=== PATIENT | female | born 1950 | race Caucasian/White ===

== ENCOUNTER 2018-11-19 15:10 | Emergency (ER) | payer OTHER ==
--- OUTSIDE RECORDS SUMMARY | 2018-11-19 15:12 | XMS REPORT ---
:1950 [facility] [address] [place] [address] Dr. Mckeon [address] [place] [id number] Care Team Providers Name Role Phone Unavailable Unavailable Unavailable Problems This patient has no known problems. Allergies, Adverse Reactions, Alerts This patient has no known allergies or adverse reactions. Medications This patient has no known medications.
[2018-11-19] MEDS ORDERED: KETOROLAC 30 MG/ML INJ ONE (15:49)
--- NOTE | 2018-11-19 16:21 | ER ---
Nurse's Notes [facility] Name: Celina Lyons Age: 68 yrs Sex: Female : 1950 Arrival Date: 11/19/2018 Time: 15:12 Bed 17 Private MD: Diagnosis: Pain in left knee;Synovial cyst of popliteal space [Ngo], left knee Presentation: 11/19 15:15 Presenting complaint: Patient states: left knee pain, s/p left knee sx with cartilage sv removal on 11/09/18. Reports has had increased activity recently. Transition of care: patient was not received from another setting of care. Onset of symptoms was November 19, 2018. Initial Sepsis Screen: Does the patient meet any 2 criteria? No. Patient's initial sepsis screen is negative. Does the patient have a suspected source of infection? No. Patient's initial sepsis screen is negative. Care prior to arrival: None. 15:15 Method Of Arrival: Wheelchair sv 15:15 Acuity: JOSE 4 sv 15:30 Risk Assessment: Do you want to hurt yourself or someone else? Patient reports no em desire to harm self or others. Historical: - Allergies: 15:22 Codeine; sv - PMHx: 15:22 Diabetes - NIDDM; endometriosis; Thyroid problem; toe amputations; sv - PSHx: 15:22 Partial thyroidectomy to remove benign tumors; gastric band; Cholecystectomy; sv Hysterectomy; partial bladder and bowel removal; Parathyroid removal; Screenin:27 Abuse screen: Denies threats or abuse. Nutritional screening: No deficits noted. em Tuberculosis screening: No symptoms or risk factors identified. Fall Risk None identified. Assessment: 15:30 General: Appears in no apparent distress. comfortable, Behavior is calm, cooperative, em Denies fever. Pain: Complains of pain in left knee Pain currently is 10 out of 10 on a pain scale. Neuro: Level of Consciousness is awake, alert, obeys commands, Oriented to person, place, time, situation. Cardiovascular: Capillary refill < 3 seconds Patient's skin is warm and dry. Respiratory: Airway is patent Respiratory effort is even, unlabored, Respiratory pattern is regular, symmetrical. GI: Patient currently denies nausea, vomiting. Derm: Skin is intact, is healthy with good turgor, Skin is pink, warm \T\ dry. Musculoskeletal: Capillary refill < 3 seconds, Range of motion: intact in all extremities. 15:44 Reassessment: I agree with previous assessment. hb Vital Signs: 15:22 BP 143 / 89; Pulse 84; Resp 20; Temp 97; Pulse Ox 100% ; Weight 77.56 kg; Height 5 ft. sv 2 in. (157.48 cm); Pain 10/10; 15:22 Body Mass Index 31.27 (77.56 kg, 157.48 cm) sv ED Course: 15:12 Patient arrived in ED. as 15:14 Stephany Zazueta FNP-C is PHCP. snw 15:14 Ken Gutierres MD is Attending Physician. snw 15:21 Triage completed. sv 15:21 Partha Campoverde LVN is Primary Nurse. em 15:22 Arm band placed on. sv 15:27 Patient has correct armband on for positive identification. Bed in low position. Call em light in reach. Side rails up X2. 16:23 No provider procedures requiring assistance completed. Patient did not have IV access em during this emergency room visit. 16:25 US Extremity Venous Unilateral Ltd In Process Unspecified. EDMS Administered Medications: 15:44 Drug: TORadol 30 mg Route: IM; Site: right deltoid; em 16:45 Follow up: Response: No adverse reaction; Pain is decreased em Outcome: 16:21 Discharge ordered by MD. snw 16:46 Discharged to home via wheelchair. em 16:46 Condition: stable 16:46 Discharge instructions given to patient, Instructed on discharge instructions, follow up and referral plans. Demonstrated understanding of instructions, follow-up care. 17:05 Patient left the ED. hb Signatures: Dispatcher [employer] EDMS Selina Wise RN RN Stephany Zazueta FNP-C [employer] Partha Campoverde LVN LVN em Irlanda Lott as Constance Cherry RN RN hb Corrections: (The following items were deleted from the chart) 15:27 15:22 Temp 97F; 77.56 kg; Height 5 ft. 2 in.; BMI: 31.2; Pain 10/10; sv sv
--- NOTE | 2018-11-19 16:21 | EDPHYS ---
Physician Documentation [facility] Name: Celina Lyons Age: 68 yrs Sex: Female : 1950 Arrival Date: 11/19/2018 Time: 15:12 Bed 17 Private MD: ED Physician Ken Gutierres HPI: 11/19 16:04 This 68 yrs old Female presents to ER via Wheelchair with complaints of Knee snw Pain. 16:04 Onset: The symptoms/episode began/occurred suddenly. The patient has experienced snw similar episodes in the past. The patient has been recently seen by a physician: Opthalmology yesterday for pre-op. All testing within normal. Pt states her knee has been feeling "too good" and she did too much and now has pain. Declines pain medications except anti-inflammatory. Historical: - Allergies: 15:22 Codeine; sv - PMHx: 15:22 Diabetes - NIDDM; endometriosis; Thyroid problem; toe amputations; sv - PSHx: 15:22 Partial thyroidectomy to remove benign tumors; gastric band; Cholecystectomy; sv Hysterectomy; partial bladder and bowel removal; Parathyroid removal; ROS: 16:02 Constitutional: Negative for fever, chills, and weight loss, Eyes: Negative for injury, snw pain, redness, and discharge, ENT: Negative for injury, pain, and discharge, Neck: Negative for injury, pain, and swelling, Cardiovascular: Negative for chest pain, palpitations, and edema, Respiratory: Negative for shortness of breath, cough, wheezing, and pleuritic chest pain, Abdomen/GI: Negative for abdominal pain, nausea, vomiting, diarrhea, and constipation, Back: Negative for injury and pain, : Negative for injury, bleeding, discharge, and swelling, Skin: Negative for injury, rash, and discoloration, Neuro: Negative for headache, weakness, numbness, tingling, and seizure. 16:02 MS/extremity: Positive for pain, of the left knee. Exam: 16:02 Constitutional: This is a well developed, well nourished patient who is awake, alert, snw and in no acute distress. Head/Face: Normocephalic, atraumatic. Eyes: Pupils equal round and reactive to light, extra-ocular motions intact. Lids and lashes normal. Conjunctiva and sclera are non-icteric and not injected. Cornea within normal limits. Periorbital areas with no swelling, redness, or edema. ENT: Nares patent. No nasal discharge, no septal abnormalities noted. Tympanic membranes are normal and external auditory canals are clear. Oropharynx with no redness, swelling, or masses, exudates, or evidence of obstruction, uvula midline. Mucous membranes moist. Neck: Trachea midline, no thyromegaly or masses palpated, and no cervical lymphadenopathy. Supple, full range of motion without nuchal rigidity, or vertebral point tenderness. No Meningismus. Chest/axilla: Normal chest wall appearance and motion. Nontender with no deformity. No lesions are appreciated. Cardiovascular: Regular rate and rhythm with a normal S1 and S2. No gallops, murmurs, or rubs. Normal PMI, no JVD. No pulse deficits. Respiratory: Lungs have equal breath sounds bilaterally, clear to auscultation and percussion. No rales, rhonchi or wheezes noted. No increased work of breathing, no retractions or nasal flaring. Abdomen/GI: Soft, non-tender, with normal bowel sounds. No distension or tympany. No guarding or rebound. No evidence of tenderness throughout. Back: No spinal tenderness. No costovertebral tenderness. Full range of motion. Skin: Warm, dry with normal turgor. Normal color with no rashes, no lesions, and no evidence of cellulitis. Neuro: Awake and alert, GCS 15, oriented to person, place, time, and situation. Cranial nerves II-XII grossly intact. Motor strength 5/5 in all extremities. Sensory grossly intact. Cerebellar exam normal. Normal gait. Psych: Awake, alert, with orientation to person, place and time. Behavior, mood, and affect are within normal limits. 16:02 Musculoskeletal/extremity: ROM: no acute changes, Pulses: are normal with no appreciated deficits, Sensation intact. Compartment Syndrome exam of affected extremity: is normal. pt states increased pain post over-use s/p arthroscopic surgery. Appt with Ortho next week. . Vital Signs: 15:22 BP 143 / 89; Pulse 84; Resp 20; Temp 97; Pulse Ox 100% ; Weight 77.56 kg; Height 5 ft. sv 2 in. (157.48 cm); Pain 10/10; 15:22 Body Mass Index 31.27 (77.56 kg, 157.48 cm) sv MDM: 15:14 Patient medically screened. snw 16:23 Data reviewed: vital signs, nurses notes. Data interpreted: Pulse oximetry: on room air snw is 100 %. Interpretation: normal. Counseling: I had a detailed discussion with the patient and/or guardian regarding: the historical points, exam findings, and any diagnostic results supporting the discharge/admit diagnosis, radiology results, the need for outpatient follow up, to return to the emergency department if symptoms worsen or persist or if there are any questions or concerns that arise at home. Special discussion: I have referred the patient to see his PCP for further evaluation of high blood pressure. Based on the history and exam findings, there is no indication for further emergent testing or inpatient evaluation. I discussed with the patient/guardian the need to see the orthopedic surgeon for further evaluation of the symptoms. 11/19 15:36 Order name: US Extremity Venous Unilateral Ltd; Complete Time: 16:32 snw 11/19 16:30 Order name: Jeronimo wrap-joint; Complete Time: 16:45 snw Administered Medications: 15:44 Drug: TORadol 30 mg Route: IM; Site: right deltoid; em 16:45 Follow up: Response: No adverse reaction; Pain is decreased em Disposition: 11/19/18 16:21 Discharged to Home. Impression: Pain in left knee, Synovial cyst of popliteal space [Ngo], left knee. - Condition is Stable. - Discharge Instructions: Elastic Bandage and RICE, Ngo Cyst, Musculoskeletal Pain, Cryotherapy, [id number]. - Medication Reconciliation Form, Thank You Letter, Antibiotic Education, Prescription Opioid Use form. - Follow up: Private Physician; When: as scheduled; Reason: Recheck today's complaints, Continuance of care, Re-evaluation by your physician. Follow up: Emergency Department; When: As needed; Reason: Worsening of condition. - Notes: Continue medications as directed. Rest, elevation of left lower extremity. Follow up with Orthopedic Surgeon as scheduled. Addendum: 11/20/2018 22:26 Co-signature as Attending Physician, Ken Gutierres MD. r n Signatures: Dispatcher [employer] Selina Garner RN RN Stephany Lee, ORDER TAKER-C ORDER TAKER-[place] Partha Campoverde, ROLL TENSION TESTER ROLL TENSION TESTER Ken Jeff MD MD rn Constance Cherry RN RN hb Corrections: (The following items were deleted from the chart) 11/19 17:05 16:21 11/19/2018 16:21 Discharged to Home. Impression: Pain in left knee; Synovial cyst hb of popliteal space [Ngo], left knee. Condition is Stable. Forms are Medication Reconciliation Form, Thank You Letter, Antibiotic Education, Prescription Opioid Use. Follow up: Private Physician; When: as scheduled; Reason: Recheck today's complaints, Continuance of care, Re-evaluation by your physician. Follow up: Emergency Department; When: As needed; Reason: Worsening of condition. snw
--- NOTE | 2018-11-19 16:30 | RAD REPORT ---
EXAM DESCRIPTION: US - Extremity Venous Uni Ltd - 11/19/2018 4:25 pm CLINICAL HISTORY: recent scope;Pain Leg swelling and edema. COMPARISON: No comparisons FINDINGS: Left lower extremity venous system was interrogated with Doppler technique. Normal flow, c ompressibility and augmentation was noted. There is no DVT present. IMPRESSION: No evidence of left lower extremity deep venous thrombosis.
[2018-11-19 17:26] VITALS: BP 143/89; TEMP 97; O2SAT 100
== END 2018-11-19 17:05 | disposition home or self-care (01) ==
LOC: ER 15:10
DX: M25.562 Pain in left knee (principal); M71.22 Synovial cyst of popliteal space [Baker], left knee; E11.9 Type 2 diabetes mellitus without complications; Z88.5 Allergy status to narcotic agent
CPT/HCPCS: 93971; 96372; 99283

== ENCOUNTER 2022-11-06 09:02 | Inpatient (IN) | payer OTHER ==
--- OUTSIDE RECORDS SUMMARY | 2022-11-06 09:07 | XMS REPORT | Continuity of Care Document ---
:1950 Author Organization [facility] t Address [address] [facility] [address] [place] [address] Care Team Providers Name Role Phone Leroy Lozada MD Primary Care Physician [phone] Warren Schumacher MD Attending Clinician Doctor Unassigned, [place] Attending Clinician Unavailable Leroy Lozada MD Attending Clinician Provider, [facility] Attending Clinician Unavailable Marcy Toribio RN Attending Clinician Unavailable Only, Emilio [facility] Test Attending Clinician Unavailable Zandra Machuca Attending Clinician ZANDRA PNA Attending Clinician Unavailable Anna Allison RN Attending Clinician Unavailable Provider, [facility] Attending Clinician Unavailable LEROY LOZADA Attending Clinician Unavailable Lab, [facility] Attending Clinician Unavailable Omaghomi TECHNOLOGY ADVISOR, Omayemi Attending Clinician Shonda Peñaloza Attending Clinician Jani TECHNOLOGY ADVISOR, Cassandra Attending Clinician CASSANDRA HANNAH Attending Clinician Unavailable Frederick Acuna MD Attending Clinician Frederick Acuna MD Admitting Clinician Payers Payer Name Policy Type Policy Number Effective Date Expiration Date S ource Problems Condition Condition Condition Status Onset Resolution Last Treating Co mments Source Name Details Category Date Date Treatment Clinician Date Pancytopen Pancytopen Disease Active 2019-07 U nivers ia ia 2 ity of 00:00: [place] [facility] Branch Hyperchole Hyperchole Disease Active 2019-07 U genoveva sterolemia sterolemia 2 it y of 00:00: [place] [facility] Elevated Elevated Disease Active 2019-07 Unive rs TSH TSH 2 ity of 00:00: [place] [facility] H/O H/O Disease Active 2018-07 Univers thyroidect thyroidect 0- it y of marcelle marcelle 00:00: [place] [facility] Hypomagnes Hypomagnes Disease Active U dennisers emia emia 9 ity of 00:00: [place] [facility] LAP-BAND LAP-BAND Disease Active Unive rs surgery surgery 03-15 ity of status status 00:00: [place] [facility] Fatty Fatty Disease Active Univers liver liver 03-03 ity of 00:00: [place] [facility] H/O H/O Disease Active Univers parathyroi parathyroi 15 it y of dectomy dectomy 00:00: [place] [facility] Anemia, Anemia, Disease Active Overview: Univ ers unspecifie unspecifie 03-03 Formattin ity of d d 00:00: g of this [place] 00 note Medical might be Branch different from the original. s/p work-up with Hematolog y, malignanc y ruled-out per patient Rheumatoid Rheumatoid Disease Active U dennisers arthritis arthritis ity of [facility] Diabetes Diabetes Disease Active Unive rs ity of [facility] Allergies, Adverse Reactions, Alerts Allergy Allergy Status Severity Reaction(s) Onset Inactive Treating Comm ents Source Name Type Date Date Clinician Codeine Propensi Active Rash Univers ty to 8-24 ity of adverse 00:00: [place] reaction 00 Medical Branch Pineappl Propensi Active Rash Univer s e ty to 8 ity of adverse 00:00: [place] reaction 00 [facility] Branch CODEINE DRUG Active Rash Univers INGREDI 8-24 ity of 00:00: [place] 00 Medical Branch PINEAPPL DRUG Active Rash 2016-0 Univers E INGREDI 8-24 ity of 00:00: [address] Social History Social Habit Start Date Stop Date Quantity Comments Source Exposure to Not sure University SARS-CoV-2 [place] [facility] (event) Branch Alcohol intake 2021-01-20 2021-01-20 Current University of 00:00:00 00:00:00 non-drinker of [facility] alcohol (finding) [place] Tobacco use and 2018-11-21 2018-11-21 Smokeless tobacco Un iversity of exposure 00:00:00 00:00:00 non-user [facility] Sex Ass[birth year] At [birth year] Universit y of 00:00:00 00:00:00 [facility] Smoking Status Start Date Stop Date Source Never smoked tobacco [facility] Medications Ordered Filled Start Stop Current Ordering Indication Dosage Frequency Signature Comments Components Source Medication Medication Date Date Medication? Clinician (SIG) Name Name dulaglutide Yes [id number] 1.5mg INJECT 1.5 Univers (TRULICITY) 8-30 MG UNDER ity of 1.5 mg/0.5 00:00: THE SKIN Rah as mL PnIj WEEKLY Medical Branch dulaglutide Yes [id number] 1.5mg INJECT 1.5 Univers (TRULICITY) 8-30 MG UNDER ity of 1.5 mg/0.5 00:00: THE SKIN [place] mL PnIj WEEKLY Medical Branch dulaglutide Yes [id number] 1.5mg INJECT 1.5 Univers (TRULICITY) 8-30 MG UNDER ity of 1.5 mg/0.5 00:00: THE SKIN [place] mL PnIj WEEKLY Medical Branch dulaglutide Yes [id number] 1.5mg INJECT 1.5 Univers (TRULICITY) 8-30 MG UNDER ity of 1.5 mg/0.5 00:00: THE SKIN [place] mL PnIj WEEKLY Medical Branch TRULICITY Yes [id number] 1.5mg INJECT 1.5 Univers 1.5 mg/0.5 7-20 MG UNDER ity o f mL PnIj 00:00: THE SKIN [place] 00 WEEKLY. Medical Branch TRULICITY 2021- No [id number] 1.5mg INJECT 1.5 Univers 1.5 mg/0.5 7-20 08-30 MG UNDER ity of mL PnIj 00:00: 00:00 THE SKIN [place] 00 :00 WEEKLY. Medical Branch rosuvastati Yes [id number] 5mg Take 1 Univers n 5 mg 7-04 tablet by ity of tablet 00:00: mouth [place] 00 daily. Medical Branch rosuvastati Yes [id number] 5mg Take 1 Univers n 5 mg 7-04 tablet by ity of tablet 00:00: mouth [place] 00 daily. Medical Branch rosuvastati Yes [id number] 5mg Take 1 Univers n 5 mg 7-04 tablet by ity of tablet 00:00: mouth [place] 00 daily. Medical Branch rosuvastati Yes [id number] 5mg Take 1 Univers n 5 mg 7-04 tablet by ity of tablet 00:00: mouth [place] 00 daily. Medical Branch rosuvastati Yes [id number] 5mg Take 1 Univers n 5 mg 7-04 tablet by ity of tablet 00:00: mouth [place] 00 daily. Medical Branch rosuvastati Yes [id number] 5mg Take 1 Univers n 5 mg 7-04 tablet by ity of tablet 00:00: mouth [place] 00 daily. Medical Branch rosuvastati Yes [id number] 5mg Take 1 Univers n 5 mg 7-04 tablet by ity of tablet 00:00: mouth [place] 00 daily. Medical Branch rosuvastati Yes [id number] 5mg Take 1 Univers n 5 mg 7-04 tablet by ity of tablet 00:00: mouth [place] 00 daily. Medical Branch rosuvastati Yes [id number] 5mg Take 1 Univers n 5 mg 7-04 tablet by ity of tablet 00:00: mouth [place] 00 daily. Medical Branch rosuvastati Yes [id number] 5mg Take 1 Univers n 5 mg 7-04 tablet by ity of tablet 00:00: mouth [place] 00 daily. [facility] Branch rosuvastati Yes [id number] 5mg Take 1 Univers n 5 mg 7-04 tablet by ity of tablet 00:00: mouth [place] 00 daily. [facility] Branch rosuvastati Yes [id number] 5mg Take 1 Univers n 5 mg 7-04 tablet by ity of tablet 00:00: mouth [place] 00 daily. Medical Branch rosuvastati 2020-0 Yes [id number] 5mg Take 1 Univers n 5 mg 7-04 tablet by ity of tablet 00:00: mouth [place] 00 daily. Medical Branch rosuvastati 2020-0 Yes [id number] 5mg Take 1 Univers n 5 mg 7-04 tablet by ity of tablet 00:00: mouth [place] 00 daily. Medical Branch rosuvastati 2020-0 Yes [id number] 5mg Take 1 Univers n 5 mg 7-04 tablet by ity of tablet 00:00: mouth [place] 00 daily. Medical Branch rosuvastati 2020-0 Yes [id number] 5mg Take 1 Univers n 5 mg 7-04 tablet by ity of tablet 00:00: mouth [place] 00 daily. Medical Branch rosuvastati 2020-0 Yes [id number] 5mg Take 1 Univers n 5 mg 7-04 tablet by ity of tablet 00:00: mouth [place] 00 daily. Medical Branch ibuprofen 0 Yes 200mg Take 200 Uni vers (ADVIL) 200 6-30 mg by ity of mg tablet 16:04: mouth [place] 48 every 6 Medical (six) Branch hours as needed. loperamide 2020-0 Yes Take by [facility] ers HCl 6-30 mouth. ity of (IMODIUM 16:04: [place] ORAL) 48 Medical Branch ibuprofen 2020-0 Yes 200mg Take 200 Uni vers (ADVIL) 200 6-30 mg by ity of mg tablet 16:04: mouth [place] 48 every 6 Medical (six) Branch hours as needed. loperamide 2020-0 Yes Take by Univ ers HCl 6-30 mouth. ity of (IMODIUM 16:04: [place] ORAL) 48 Medical Branch ibuprofen 2020-0 Yes 200mg Take 200 Uni vers (ADVIL) 200 6-30 mg by ity of mg tablet 16:04: mouth [place] 48 every 6 Medical (six) Branch hours as needed. loperamide 2020-0 Yes Take by Univ ers HCl 6-30 mouth. ity of (IMODIUM 16:04: [place] ORAL) 48 Medical Branch ibuprofen 2020-0 Yes 200mg Take 200 Uni vers (ADVIL) 200 6-30 mg by ity of mg tablet 16:04: mouth [place] 48 every 6 Medical (six) Branch hours as needed. loperamide 2021-0 Yes Take by Univ ers HCl 6-30 mouth. ity of (IMODIUM 16:04: [place] ORAL) 48 Medical Branch ibuprofen 2021-0 Yes 200mg Take 200 Uni vers (ADVIL) 200 6-30 mg by ity of mg tablet 16:04: mouth [place] 48 every 6 Medical (six) Branch hours as needed. loperamide 2021-0 Yes Take by Univ ers HCl 6-30 mouth. ity of (IMODIUM 16:04: [place] ORAL) 48 Medical Branch ibuprofen 2021-0 Yes 200mg Take 200 Uni vers (ADVIL) 200 6-30 mg by ity of mg tablet 16:04: mouth [place] 48 every 6 Medical (six) Branch hours as needed. loperamide 2021-0 Yes Take by Univ ers HCl 6-30 mouth. ity of (IMODIUM 16:04: [place] ORAL) 48 Medical Branch ibuprofen 1-0 Yes 200mg Take 200 Uni vers (ADVIL) 200 6-30 mg by ity of mg tablet 16:04: mouth [place] 48 every 6 Medical (six) Branch hours as needed. loperamide 1-0 Yes Take by Univ ers HCl 6-30 mouth. ity of (IMODIUM 16:04: [place] ORAL) 48 Medical Branch ibuprofen 2021-0 Yes 200mg Take 200 Uni vers (ADVIL) 200 6-30 mg by ity of mg tablet 16:04: mouth [place] 48 every 6 Medical (six) Branch hours as needed. loperamide 2021-0 Yes Take by Univ ers HCl 6-30 mouth. ity of (IMODIUM 16:04: [place] ORAL) 48 Medical Branch ibuprofen 2021-0 Yes 200mg Take 200 Uni vers (ADVIL) 200 6-30 mg by ity of mg tablet 16:04: mouth [place] 48 every 6 Medical (six) Branch hours as needed. loperamide 2021-0 Yes Take by Univ ers HCl 6-30 mouth. ity of (IMODIUM 16:04: [place] ORAL) 48 Medical Branch ibuprofen 2021-0 Yes 200mg Take 200 Uni vers (ADVIL) 200 6-30 mg by ity of mg tablet 16:04: mouth [place] 48 every 6 Medical (six) Branch hours as needed. loperamide 2021-0 Yes Take by Univ ers HCl 6-30 mouth. ity of (IMODIUM 16:04: [place] ORAL) 48 Medical Branch ibuprofen 2021-0 Yes 200mg Take 200 Uni vers (ADVIL) 200 6-30 mg by ity of mg tablet 16:04: mouth [place] 48 every 6 Medical (six) Branch hours as needed. loperamide 2021-0 Yes Take by Univ ers HCl 6-30 mouth. ity of (IMODIUM 16:04: [place] ORAL) 48 Medical Branch ibuprofen 2021-0 Yes 200mg Take 200 Uni vers (ADVIL) 200 6-30 mg by ity of mg tablet 16:04: mouth [place] 48 every 6 Medical (six) Branch hours as needed. loperamide 2021-0 Yes Take by Univ ers HCl 6-30 mouth. ity of (IMODIUM 16:04: [place] ORAL) 48 Medical Branch ibuprofen 2021-0 Yes 200mg Take 200 Uni vers (ADVIL) 200 6-30 mg by ity of mg tablet 16:04: mouth [place] 48 every 6 Medical (six) Branch hours as needed. loperamide 2021-0 Yes Take by Univ ers HCl 6-30 mouth. ity of (IMODIUM 16:04: [place] ORAL) 48 Medical Branch ibuprofen 2021-0 Yes 200mg Take 200 Uni vers (ADVIL) 200 6-30 mg by ity of mg tablet 16:04: mouth [place] 48 every 6 Medical (six) Branch hours as needed. loperamide 2021-0 Yes Take by Univ ers HCl 6-30 mouth. ity of (IMODIUM 16:04: [place] ORAL) 48 Medical Branch ibuprofen 2021-0 Yes 200mg Take 200 Uni vers (ADVIL) 200 6-30 mg by ity of mg tablet 16:04: mouth [place] 48 every 6 Medical (six) Branch hours as needed. loperamide 2021-0 Yes Take by Univ ers HCl 6-30 mouth. ity of (IMODIUM 16:04: [place] ORAL) 48 Medical Branch ibuprofen 2021-0 Yes 200mg Take 200 Uni vers (ADVIL) 200 6-30 mg by ity of mg tablet 16:04: mouth [place] 48 every 6 Medical (six) Branch hours as needed. loperamide 2021-0 Yes Take by Univ ers HCl 6-30 mouth. ity of (IMODIUM 16:04: [place] ORAL) 48 Medical Branch ibuprofen 2021-0 Yes 200mg Take 200 Uni vers (ADVIL) 200 6-30 mg by ity of mg tablet 16:04: mouth [place] 48 every 6 Medical (six) Branch hours as needed. loperamide Yes Take by Univ ers HCl 6-30 mouth. ity of (IMODIUM 16:04: [place] ORAL) 48 Medical Branch dulaglutide Yes [id number] 1.5mg inject 1.5 Univers (TRULICITY) 6-30 mg under ity of 1.5 mg/0.5 00:00: the skin [place] mL PnIj 00 weekly. Medical Branch dulaglutide Yes [id number] 1.5mg inject 1.5 Univers (TRULICITY) 6-30 mg under ity of 1.5 mg/0.5 00:00: the skin [place] mL PnIj 00 weekly. Medical Branch dulaglutide Yes [id number] 1.5mg inject 1.5 Univers (TRULICITY) 6-30 mg under ity of 1.5 mg/0.5 00:00: the skin [place] mL PnIj 00 weekly. Medical Branch dulaglutide Yes [id number] 1.5mg inject 1.5 Univers (TRULICITY) 6-30 mg under ity of 1.5 mg/0.5 00:00: the skin [place] mL PnI[place] 00 weekly. Medical Branch dulaglutide Yes [id number] 1.5mg inject 1.5 Univers (TRULICITY) 6-30 mg under ity of 1.5 mg/0.5 00:00: the skin [place] mL PnIj 00 weekly. Medical Branch dulaglutide Yes [id number] 1.5mg inject 1.5 Univers (TRULICITY) 6-30 mg under ity of 1.5 mg/0.5 00:00: the skin [place] mL PnIj 00 weekly. Medical Branch dulaglutide Yes [id number] 1.5mg inject 1.5 Univers (TRULICITY) 6-30 mg under ity of 1.5 mg/0.5 00:00: the skin [place] mL PnIj 00 weekly. Medical Branch dulaglutide Yes [id number] 1.5mg inject 1.5 Univers (TRULICITY) 6-30 mg under ity of 1.5 mg/0.5 00:00: the skin [place] mL PnIj 00 weekly. Medical Branch dulaglutide Yes [id number] 1.5mg inject 1.5 Univers (TRULICITY) 6-30 mg under ity of 1.5 mg/0.5 00:00: the skin [place] mL PnIj 00 weekly. Medical Branch dulaglutide Yes [id number] 1.5mg inject 1.5 Univers (TRULICITY) 6-30 mg under ity of 1.5 mg/0.5 00:00: the skin [place] mL PnIj 00 weekly. Medical Branch dulaglutide Yes [id number] 1.5mg inject 1.5 Univers (TRULICITY) 6-30 mg under ity of 1.5 mg/0.5 00:00: the skin [place] mL PnIj 00 weekly. Medical Branch dulaglutide Yes [id number] 1.5mg inject 1.5 Univers (TRULICITY) 6-30 mg under ity of 1.5 mg/0.5 00:00: the skin [place] mL PnIj 00 weekly. Medical Branch dulaglutide 202- No [id number] 1.5mg inject 1.5 Univers (TRULICITY) 6-30 07-20 mg under ity of 1.5 mg/0.5 00:00: 00:00 the [place] mL PnIj 00 :00 weekly. Medical Branch Blood-Gluco 2020- Yes [id number] Check Univers se Meter 2-12 glucose ity of Kit 00:00: once daily [place] 00 before Medical breakfast; Branch ICD-10 code E11.9 blood sugar 2020- Yes [id number] Check Univers diagnostic 2-12 glucose ity of (BLOOD 00:00: once daily [place] GLUCOSE 00 before Medical TEST) strip breakfast; Br anch ICD-10 code E11.9 Lancets 2020- Yes [id number] Check Univ ers Misc 2-12 glucose ity of 00:00: once daily [place] 00 before Medical breakfast; Branch ICD-10 code E11.9 Blood-Gluco 2020- Yes [id number] Check Univers se Meter 2-12 glucose ity of Kit 00:00: once daily [place] 00 before Medical breakfast; Branch ICD-10 code E11.9 blood sugar 2020- Yes [id number] Check Univers diagnostic 2-12 glucose ity of (BLOOD 00:00: once daily [place] GLUCOSE 00 before Medical TEST) strip breakfast; Br anch ICD-10 code E11.9 Lancets 2020-1 Yes [id number] Check Univ ers Misc 2-12 glucose ity of 00:00: once daily [place] 00 before Medical breakfast; Branch ICD-10 code E11.9 Blood-Gluco 2020-1 Yes [id number] Check Univers se Meter 2-12 glucose ity of Kit 00:00: once daily [place] 00 before Medical breakfast; Branch ICD-10 code E11.9 blood sugar 2020-1 Yes [id number] Check Univers diagnostic 2-12 glucose ity of (BLOOD 00:00: once daily [place] GLUCOSE 00 before Medical TEST) strip breakfast; Br anch ICD-10 code E11.9 Lancets 2020-1 Yes [id number] Check Univ ers Misc 2-12 glucose ity of 00:00: once daily [place] 00 before Medical breakfast; Branch ICD-10 code E11.9 Blood-Gluco 2020-1 Yes [id number] Check Univers se Meter 2-12 glucose ity of Kit 00:00: once daily [place] 00 before Medical breakfast; Branch ICD-10 code E11.9 blood sugar 2020-1 Yes [id number] Check Univers diagnostic 2-12 glucose ity of (BLOOD 00:00: once daily [place] GLUCOSE 00 before Medical TEST) strip breakfast; Br anch ICD-10 code E11.9 Lancets 2020-1 Yes [id number] Check Univ ers Misc 2-12 glucose ity of 00:00: once daily [place] 00 before Medical breakfast; Branch ICD-10 code E11.9 Blood-Gluco 2020-1 Yes [id number] Check Univers se Meter 2-12 glucose ity of Kit 00:00: once daily [place] 00 before Medical breakfast; Branch ICD-10 code E11.9 blood sugar 2020-1 Yes [id number] Check Univers diagnostic 2-12 glucose ity of (BLOOD 00:00: once daily [place] GLUCOSE 00 before Medical TEST) strip breakfast; Br anch ICD-10 code E11.9 Lancets 2020-1 Yes [id number] Check Univ ers Misc 2-12 glucose ity of 00:00: once daily [place] 00 before Medical breakfast; Branch ICD-10 code E11.9 Blood-Gluco 2020-1 Yes [id number] Check Univers se Meter 2-12 glucose ity of Kit 00:00: once daily [place] 00 before Medical breakfast; Branch ICD-10 code E11.9 blood sugar 2020-1 Yes [id number] Check Univers diagnostic 2-12 glucose ity of (BLOOD 00:00: once daily [place] GLUCOSE 00 before Medical TEST) strip breakfast; Br anch ICD-10 code E11.9 Lancets 2020-1 Yes [id number] Check Univ ers Misc 2-12 glucose ity of 00:00: once daily [place] 00 before Medical breakfast; Branch ICD-10 code E11.9 Blood-Gluco 2020-1 Yes [id number] Check Univers se Meter 2-12 glucose ity of Kit 00:00: once daily [place] 00 before Medical breakfast; Branch ICD-10 code E11.9 blood sugar 2020-1 Yes [id number] Check Univers diagnostic 2-12 glucose ity of (BLOOD 00:00: once daily [place] GLUCOSE 00 before Medical TEST) strip breakfast; Br anch ICD-10 code E11.9 Lancets 2020-1 Yes [id number] Check Univ ers Misc 2-12 glucose ity of 00:00: once daily [place] 00 before Medical breakfast; Branch ICD-10 code E11.9 Blood-Gluco 2020-1 Yes [id number] Check Univers se Meter 2-12 glucose ity of Kit 00:00: once daily [place] 00 before Medical breakfast; Branch ICD-10 code E11.9 blood sugar 2020-1 Yes [id number] Check Univers diagnostic 2-12 glucose ity of (BLOOD 00:00: once daily [place] GLUCOSE 00 before Medical TEST) strip breakfast; Br anch ICD-10 code E11.9 Lancets 2020-1 Yes [id number] Check Univ ers Misc 2-12 glucose ity of 00:00: once daily [place] 00 before Medical breakfast; Branch ICD-10 code E11.9 Blood-Gluco 2020-1 Yes [id number] Check Univers se Meter 2-12 glucose ity of Kit 00:00: once daily [place] 00 before Medical breakfast; Branch ICD-10 code E11.9 blood sugar 2020-1 Yes [id number] Check Univers diagnostic 2-12 glucose ity of (BLOOD 00:00: once daily [place] GLUCOSE 00 before Medical TEST) strip breakfast; Br anch ICD-10 code E11.9 Lancets 2020-1 Yes [id number] Check Univ ers Misc 2-12 glucose ity of 00:00: once daily [place] 00 before Medical breakfast; Branch ICD-10 code E11.9 Blood-Gluco 2020-1 Yes [id number] Check Univers se Meter 2-12 glucose ity of Kit 00:00: once daily [place] 00 before Medical breakfast; Branch ICD-10 code E11.9 blood sugar 2020-1 Yes [id number] Check Univers diagnostic 2-12 glucose ity of (BLOOD 00:00: once daily [place] GLUCOSE 00 before Medical TEST) strip breakfast; Br anch ICD-10 code E11.9 Lancets 2020-1 Yes [id number] Check Univ ers Misc 2-12 glucose ity of 00:00: once daily [place] 00 before Medical breakfast; Branch ICD-10 code E11.9 Blood-Gluco 2020-1 Yes [id number] Check Univers se Meter 2-12 glucose ity of Kit 00:00: once daily [place] 00 before Medical breakfast; Branch ICD-10 code E11.9 blood sugar 2020-1 Yes [id number] Check Univers diagnostic 2-12 glucose ity of (BLOOD 00:00: once daily [place] GLUCOSE 00 before Medical TEST) strip breakfast; Br anch ICD-10 code E11.9 Lancets 2020-1 Yes [id number] Check Univ ers Misc 2-12 glucose ity of 00:00: once daily [place] 00 before Medical breakfast; Branch ICD-10 code E11.9 Blood-Gluco 2020-1 Yes [id number] Check Univers se Meter 2-12 glucose ity of Kit 00:00: once daily [place] 00 before Medical breakfast; Branch ICD-10 code E11.9 blood sugar 2020-1 Yes [id number] Check Univers diagnostic 2-12 glucose ity of (BLOOD 00:00: once daily [place] GLUCOSE 00 before Medical TEST) strip breakfast; Br anch ICD-10 code E11.9 Lancets 2020-1 Yes [id number] Check Univ ers Misc 2-12 glucose ity of 00:00: once daily [place] 00 before Medical breakfast; Branch ICD-10 code E11.9 Blood-Gluco 2020-1 Yes [id number] Check Univers se Meter 2-12 glucose ity of Kit 00:00: once daily [place] 00 before Medical breakfast; Branch ICD-10 code E11.9 blood sugar 2020-1 Yes [id number] Check Univers diagnostic 2-12 glucose ity of (BLOOD 00:00: once daily [place] GLUCOSE 00 before Medical TEST) strip breakfast; Br anch ICD-10 code E11.9 Lancets 2020-1 Yes [id number] Check Univ ers Misc 2-12 glucose ity of 00:00: once daily [place] 00 before Medical breakfast; Branch ICD-10 code E11.9 Blood-Gluco 2020-1 Yes [id number] Check Univers se Meter 2-12 glucose ity of Kit 00:00: once daily [place] 00 before Medical breakfast; Branch ICD-10 code E11.9 blood sugar 2020-1 Yes [id number] Check Univers diagnostic 2-12 glucose ity of (BLOOD 00:00: once daily [place] GLUCOSE 00 before Medical TEST) strip breakfast; Br anch ICD-10 code E11.9 Lancets 2020-1 Yes [id number] Check Univ ers Misc 2-12 glucose ity of 00:00: once daily [place] 00 before Medical breakfast; Branch ICD-10 code E11.9 Blood-Gluco 2020-1 Yes [id number] Check Univers se Meter 2-12 glucose ity of Kit 00:00: once daily [place] 00 before Medical breakfast; Branch ICD-10 code E11.9 blood sugar 2020-1 Yes [id number] Check Univers diagnostic 2-12 glucose ity of (BLOOD 00:00: once daily [place] GLUCOSE 00 before Medical TEST) strip breakfast; Br anch ICD-10 code E11.9 Lancets 2020-1 Yes [id number] Check Univ ers Misc 2-12 glucose ity of 00:00: once daily [place] 00 before Medical breakfast; Branch ICD-10 code E11.9 Blood-Gluco 2020-1 Yes [id number] Check Univers se Meter 2-12 glucose ity of Kit 00:00: once daily [place] 00 before Medical breakfast; Branch ICD-10 code E11.9 blood sugar 2020-1 Yes [id number] Check Univers diagnostic 2-12 glucose ity of (BLOOD 00:00: once daily [place] GLUCOSE 00 before Medical TEST) strip breakfast; Br anch ICD-10 code E11.9 Lancets 2020-1 Yes [id number] Check Univ ers Misc 2-12 glucose ity of 00:00: once daily [place] 00 before Medical breakfast; Branch ICD-10 code E11.9 Blood-Gluco 2020-1 Yes [id number] Check Univers se Meter 2-12 glucose ity of Kit 00:00: once daily [place] 00 before Medical breakfast; Branch ICD-10 code E11.9 blood sugar 2020-1 Yes [id number] Check Univers diagnostic 2-12 glucose ity of (BLOOD 00:00: once daily [place] GLUCOSE 00 before Medical TEST) strip breakfast; Br anch ICD-10 code E11.9 Lancets 2020-1 Yes [id number] Check Univ ers Misc 2-12 glucose ity of 00:00: once daily [place] 00 before Medical breakfast; Branch ICD-10 code E11.9 cyanocobala 2020-[address] Unive rs min, 2-27 under the ity of vitamin 15:43: tongue. [place] B-, 45 Medical (VITAMIN Branch B-12 SL) Cholecalcif 2020-0 Yes Take by Uni vers [place], 2-27 mouth ity of Vitamin D3, 15:43: [place]. [place] (VITAMIN 45 Take with Medica l D3) 1,000 a meal Branch unit Chew cyanocobala 2020-[address] Unive rs min, 2-27 under the ity of vitamin 15:43: tongue. [place] B- 45 Medical (VITAMIN Branch B-12 SL) Cholecalcif 2020-0 Yes Take by Un juan miguel [place], 2-27 mouth ity of Vitamin D3, 15:43: daily. [place] (VITAMIN 45 Take with Medica l D3) 1,000 a meal Branch unit Chew cyanocobala 2020-[address] Unive rs min, 2-27 under the ity of vitamin 15:43: tongue. [place] B- 45 Medical (VITAMIN Branch B-12 SL) Cholecalcif 2020-0 Yes Take by Uni vers [place], 2-27 mouth ity of Vitamin D3, 15:43: daily. [place] (VITAMIN 45 Take with Medica l D3) 1,000 a meal Branch unit Chew cyanocobala 2020-[address] Unive rs min, 2-27 under the ity of vitamin 15:43: tongue. [place] B-, 45 Medical (VITAMIN Branch B-12 SL) Cholecalcif 2020-0 Yes Take by Uni vers [place], 2-27 mouth ity of Vitamin D3, 15:43: daily. [place] (VITAMIN 45 Take with Medica l D3) 1,000 a meal Branch unit Chew cyanocobala 2020-[address] Unive rs min, 2-27 under the ity of vitamin 15:43: tongue. [place] B-, 45 Medical (VITAMIN Branch B-12 SL) Cholecalcif 2020-0 Yes Take by Uni vers [place], 2-27 mouth ity of Vitamin D3, 15:43: daily. [place] (VITAMIN 45 Take with Medica l D3) 1,000 a meal Branch unit Chew cyanocobala 2020-[address] Unive rs min, 2-27 under the ity of vitamin 15:43: tongue. [place] B-12, 45 Medical (VITAMIN Branch B-12 SL) Cholecalcif 2020-0 Yes Take by Uni vers [place], 2-27 mouth ity of Vitamin D3, 15:43: daily. [place] (VITAMIN 45 Take with Medica l D3) 1,000 a meal Branch unit Chew cyanocobala 2020-[address] Unive rs min, 2-27 under the ity of vitamin 15:43: tongue. B-12, 45 Medical (VITAMIN Branch B-12 SL) Cholecalcif 2020-0 Yes Take by Uni vers [place], 2-27 mouth ity of Vitamin D3, 15:43[place] ([place]IT[place] 45 Take with Medica l D3) 1,000 a meal Branch unit Chew cyanocobala 2020-[address] Unive rs min, 2-27 under the ity of vitamin 15:43: tongue. B-12, 45 Medical (VITAMIN Branch B-12 SL) Cholecalcif 2020-0 Yes Take by Uni vers [place], 2-27 mouth ity of Vitamin D3, 15:43: [place] (VITAMIN 45 Take with Medica l D3) 1,000 a meal Branch unit Chew cyanocobala 2020-[address] Unive rs min, 2-27 under the ity of vitamin 15:43: tongue. B-12, 45 Medical (VITAMIN Branch B-12 SL) Cholecalcif 2020-0 Yes Take by Uni vers [place], 2-27 mouth ity of Vitamin D3, 15:43: [place]. [place] (VITAMIN 45 Take with Medica l D3) 1,000 a meal Branch unit Chew cyanocobala 2020-[address] Unive rs min, 2-27 under the ity of vitamin 15:43: tongue. [place] B-12, 45 Medical (VITAMIN Branch B-12 SL) Cholecalcif 2020-0 Yes Take by Uni vers [place], 2-27 mouth ity of Vitamin D3, 15:43: [place]. [place] (VITAMIN 45 Take with Medica l D3) 1,000 a meal Branch unit Chew cyanocobala 2020-[address] Unive rs min, 2-27 under the ity of vitamin 15:43: tongue. B-, 45 Medical (VITAMIN Branch B-12 SL) Cholecalcif 2020-0 Yes Take by Uni vers [place], 2-27 mouth ity of Vitamin D3, 15:43: [place]. [place] (VITAMIN 45 Take with Medica l D3) 1,000 a meal Branch unit Chew cyanocobala 2020-[address] Unive rs min, 2-27 under the ity of vitamin 15:43: tongue. - 45 Medical (VITAMIN Branch B-12 SL) Cholecalcif 2020-0 Yes Take by Uni vers [place], 2-27 mouth ity of Vitamin D3, 15:43: [place]. [place] (VITAMIN 45 Take with Medica l D3) 1,000 a meal Branch unit Chew cyanocobala 2020-[address] Unive rs min, 2-27 under the ity of vitamin 15:43: tongue. - 45 Medical (VITAMIN Branch B-12 SL) Cholecalcif 2020-0 Yes Take by Uni vers [place], 2-27 mouth ity of Vitamin D3, 15:43: [place]. [place] (VITAMIN 45 Take with Medica l D3) 1,000 a meal Branch unit Chew cyanocobala 2020-[address] Unive rs min, 2-27 under the ity of vitamin 15:43: tongue. B- 45 Medical (VITAMIN Branch B-12 SL) Cholecalcif 2020-0 Yes Take by Uni vers [place], 2-27 mouth ity of Vitamin D3, 15:43: [place]. [place] (VITAMIN 45 Take with Medica l D3) 1,000 a meal Branch unit Chew cyanocobala 2020-[address] Unive rs min, 2-27 under the ity of vitamin 15:43: tongue. B-, 45 Medical (VITAMIN Branch B-12 SL) Cholecalcif 2020-0 Yes Take by Uni vers [place], 2-27 mouth ity of Vitamin D3, 15:43: [place]. [place] (VITAMIN 45 Take with Medica l D3) 1,000 a meal Branch unit Chew cyanocobala 2020-[address] Unive rs min, 2-27 under the ity of vitamin 15:43: tongue. B-, 45 Medical (VITAMIN Branch B-12 SL) Cholecalcif 2020-0 Yes Take by Uni vers [place], 2-27 mouth ity of Vitamin D3, 15:43: [place]. [place] (VITAMIN 45 Take with Medica l D3) 1,000 a meal Branch unit Chew cyanocobala 2020-[address] Unive rs min, 2-27 under the ity of vitamin 15:43: tongue. B-, 45 Medical (VITAMIN Branch B-12 SL) Cholecalcif 2020-0 Yes Take by Uni vers [place], 2-27 mouth ity of Vitamin D3, 15:43: [place]. [place] (VITAMIN 45 Take with Medica l D3) 1,000 a meal Branch unit Chew evening 2019-0 Yes 1{tbl} Take 1 Univer s primrose 8-15 tablet by ity of oil 13:47: mouth [place] (EVENING 23 daily. Medical PRIMROSE Branch ORAL) evening 2019-0 Yes 1{tbl} Take 1 Univer s primrose 8-15 tablet by ity of oil 13:47: mouth [place] (EVENING 23 daily. Medical PRIMROSE Branch ORAL) evening 2019-0 Yes 1{tbl} Take 1 Univer s primrose 8-15 tablet by ity of oil 13:47: mouth [place] (EVENING 23 daily. Medical PRIMROSE Branch ORAL) evening 2019-0 Yes 1{tbl} Take 1 Univer s primrose 8-15 tablet by ity of oil 13:47: mouth [place] (EVENING 23 daily. Medical PRIMROSE Branch ORAL) evening 2019-0 Yes 1{tbl} Take 1 Univer s primrose 8-15 tablet by ity of oil 13:47: mouth [place] (EVENING 23 daily. Medical PRIMROSE Branch ORAL) evening 2019-0 Yes 1{tbl} Take 1 Univer s primrose 8-15 tablet by ity of oil 13:47: mouth [place] (EVENING 23 daily. Medical PRIMROSE Branch ORAL) evening 2019-0 Yes 1{tbl} Take 1 Univer s primrose 8-15 tablet by ity of oil 13:47: mouth [place] (EVENING 23 daily. Medical PRIMROSE Branch ORAL) evening 2019-0 Yes 1{tbl} Take 1 Univer s primrose 8-15 tablet by ity of oil 13:47: mouth [place] (EVENING 23 daily. Medical PRIMROSE Branch ORAL) evening 2019-0 Yes 1{tbl} Take 1 Univer s primrose 8-15 tablet by ity of oil 13:47: mouth [place] (EVENING 23 daily. Medical PRIMROSE Branch ORAL) evening 2019-0 Yes 1{tbl} Take 1 Univer s primrose 8-15 tablet by ity of oil 13:47: mouth [place] (EVENING 23 daily. Medical PRIMROSE Branch ORAL) evening 2019-0 Yes 1{tbl} Take 1 Univer s primrose 8-15 tablet by ity of oil 13:47: mouth [place] (EVENING 23 daily. Medical PRIMROSE Branch ORAL) evening 2019-0 Yes 1{tbl} Take 1 Univer s primrose 8-15 tablet by ity of oil 13:47: mouth [place] (EVENING 23 daily. Medical PRIMROSE Branch ORAL) evening 2019-0 Yes 1{tbl} Take 1 Univer s primrose 8-15 tablet by ity of oil 13:47: mouth [place] (EVENING 23 daily. Medical PRIMROSE Branch ORAL) evening 2019-0 Yes 1{tbl} Take 1 Univer s primrose 8-15 tablet by ity of oil 13:47: mouth [place] (EVENING 23 daily. Medical PRIMROSE Branch ORAL) evening 2019-0 Yes 1{tbl} Take 1 Univer s primrose 8-15 tablet by ity of oil 13:47: mouth [place] (EVENING 23 daily. Medical PRIMROSE Branch ORAL) evening 2019-0 Yes 1{tbl} Take 1 Univer s [place]rose 8-15 tablet by ity of oil 13:47: mouth [place] (EVENING 23 daily. Medical PRIMROSE Branch ORAL) evening 2019-0 Yes 1{tbl} Take 1 Univer s primrose 8-15 tablet by ity of oil 13:47: mouth [place] (EVENING 23 daily. Medical PRIMROSE Branch ORAL) Immunizations Ordered Filled Immunization Date Status Comments [facility] Immunization Name Name SARS-COV-2 COVID-19 2020-10-18 Completed Unive rsity of MODERNA VACCINE 00:00:00 [place] Med ical Branch SARS-COV-2 COVID-19 2020-10-18 Completed Unive rsity of MODERNA VACCINE 00:00:00 [place] Med ical Branch SARS-COV-2 COVID-19 2020-10-18 Completed Unive rsity of MODERNA VACCINE 00:00:00 [place] Med ical Branch SARS-COV-2 COVID-19 2020-10-18 Completed Unive rsity of MODERNA VACCINE 00:00:00 [place] Med ical Branch SARS-COV-2 COVID-19 2020-10-18 Completed Unive rsity of MODERNA VACCINE 00:00:00 [place] Med ical Branch SARS-COV-2 COVID-19 2020-10-18 Completed Unive rsity of MODERNA VACCINE 00:00:00 [place] Med ical Branch SARS-COV-2 COVID-19 2020-10-18 Completed Unive rsity of MODERNA VACCINE 00:00:00 [place] Med ical Branch SARS-COV-2 COVID-19 2020-10-18 Completed Unive rsity of MODERNA VACCINE 00:00:00 [place] Med ical Branch SARS-COV-2 COVID-19 2020-10-18 Completed Unive rsity of MODERNA VACCINE 00:00:00 [place] Med ical Branch SARS-COV-2 COVID-19 2020-10-18 Completed Unive rsity of MODERNA VACCINE 00:00:00 [place] Med ical Branch SARS-COV-2 COVID-19 2020-10-18 Completed Unive rsity of MODERNA VACCINE 00:00:00 [place] Med ical Branch SARS-COV-2 COVID-19 2020-10-18 Completed Unive rsity of MODERNA VACCINE 00:00:00 [place] Med ical Branch SARS-COV-2 COVID-19 2020-10-18 Completed Unive rsity of MODERNA VACCINE 00:00:00 [place] Med ical Branch SARS-COV-2 COVID-19 2020-10-18 Completed Unive rsity of MODERNA VACCINE 00:00:00 [place] Med ical Branch SARS-COV-2 COVID-19 2020-10-18 Completed Unive rsity of MODERNA 12+ YRS 00:00:00 [place] Med ical VACCINE Branch SARS-COV-2 COVID-19 2020-10-18 Completed Unive rsity of MODERNA 12+ YRS 00:00:00 [place] Med ical VACCINE Branch SARS-COV-2 COVID-19 2020-10-18 Completed Unive rsity of MODERNA 12+ YRS 00:00:00 [place] Med ical VACCINE Branch SARS-COV-2 COVID-19 2020-09-17 Completed Unive rsity of MODERNA VACCINE 00:00:00 [place] Med ical Branch SARS-COV-2 COVID-19 2020-09-17 Completed Unive rsity of MODERNA VACCINE 00:00:00 [place] Med ical Branch SARS-COV-2 COVID-19 2020-09-17 Completed Unive rsity of MODERNA VACCINE 00:00:00 [place] Med ical Branch SARS-COV-2 COVID-19 2020-09-17 Completed Unive rsity of MODERNA VACCINE 00:00:00 [place] Med ical Branch SARS-COV-2 COVID-19 2020-09-17 Completed Unive rsity of MODERNA VACCINE 00:00:00 [place] Med ical Branch SARS-COV-2 COVID-19 2020-09-17 Completed Unive rsity of MODERNA VACCINE 00:00:00 [place] Med ical Branch SARS-COV-2 COVID-19 2020-09-17 Completed Unive rsity of MODERNA VACCINE 00:00:00 [place] Med ical Branch SARS-COV-2 COVID-19 2020-09-17 Completed Unive rsity of MODERNA VACCINE 00:00:00 [place] Med ical Branch SARS-COV-2 COVID-19 2020-09-17 Completed Unive rsity of MODERNA VACCINE 00:00:00 [place] Med ical Branch SARS-COV-2 COVID-19 2020-09-17 Completed Unive rsity of MODERNA VACCINE 00:00:00 [place] Med ical Branch SARS-COV-2 COVID-19 2020-09-17 Completed Unive rsity of MODERNA VACCINE 00:00:00 [place] Med ical Branch SARS-COV-2 COVID-19 2020-09-17 Completed Unive rsity of MODERNA VACCINE 00:00:00 [place] Med ical Branch SARS-COV-2 COVID-19 2020-09-17 Completed Unive rsity of MODERNA VACCINE 00:00:00 [place] Med ical Branch SARS-COV-2 COVID-19 2020-09-17 Completed Unive rsity of MODERNA VACCINE 00:00:00 [place] Med ical Branch SARS-COV-2 COVID-19 2020-09-17 Completed Unive rsity of MODERNA 12+ YRS 00:00:00 [place] Med ical VACCINE Branch SARS-COV-2 COVID-19 2020-09-17 Completed Unive rsity of MODERNA 12+ YRS 00:00:00 [place] Med ical VACCINE Branch SARS-COV-2 COVID-19 2020-09-17 Completed Unive rsity of MODERNA 12+ YRS 00:00:00 [place] Med ical VACCINE Branch Procedures Procedure Date / Time Performing Clinician Source Performed AUTHORIZATION FOR 2022-05-16 05:01:00 [facility] Name Medical Branch ASSIGNMENT OF BENEFITS 2021-07-26 16:18:24 Doctor Unassigned, No [facility] Name Medical Branch CLINIC RECORD / SMR 2021-06-06 06:01:00 [facility], [facility] En[facility]ters Start End Encounter Admission Attending Care Care Encounter Source Date/Time Date/Time Type Type Clinicians Facility Department ID 2022-07-29 2022-07-29 [facility] 1.2.840.114 [id number] Univers 00:00:00 00:00:00 Warren CAREY 350.1.13.[address] [facility] [place] [phone] Ar dical NAL 044 [facility] 2022-07-19 2022-07-19 [facility] 1.2.840.114 [id number] Univers 00:00:00 00:00:00 Warren CAREY 350.1.13.10 i ty of [place] [phone] Ar dichi NAL 044 [facility] 2022-05-16 2022-05-16 Orders Doctor PARKER 1.2.840.114 [id number] Univers 00:00:00 00:00:00 Only Unassigned, SOFYA 350.1.13.[address] [facility] 4.2.7.2.686 Rah as [phone] [address] 2022-03-18 2022-03-18 [facility] 1.2.840.114 [id number] Univers 00:00:00 00:00:00 Warren CAREY 350.1.13.10 i ty of [facility] 4[place] [phone] [facility] 044 [facility] 2022-02-04 2022-02-04 [facility] 1.2.840.114 [id number] Univers 00:00:00 00:00:00 Leroy CAREY 350.1.13.10 ity of [facility] [place] [phone] [address] 2021-07-31 2021-07-31 Telephone Provider, [facility] [[email or web address]] 1.2.840.114 [id number] Univers 00:00:00 00:00:00 Ang Db HEALTH 350.1.13.10 it y of Urgent Care [place] 4.2.7.2.686 [place] MARK?BLEA [phone] [address] OFFICE [facility] 2021-07-27 2021-07-27 Letter ELENA Toribio 1.2.840.114 [id number] Univers 00:00:00 00:00:00 (Out) Marcy COWART 350.1.13.10 it y of HOSPITAL 4.2.7.2.686 Rah as [phone] [address] 2021-07-26 2021-07-26 Laboratory Only, Ang Db Test [facility] [[email or web address]] 1.2.8 40.114 [id number] Univers 10:30:00 10:45:00 Only Zandra Pan HEALTH 350.1.13.10 ity of [place] 4.2.7.2.686 Rah as MARK?BLEA [phone] [address] OFFICE [facility] 2021-07-26 2021-07-26 Outpatient R VIVIANE [facility] [id number] Univers 10:30:00 10:30:00 ZANDRA mak o f [facility] 2021-07-26 2021-07-26 Letter Doctor PARKER 1.2.840.114 [id number] Univers 00:00:00 00:00:00 (Out) Unassigned, SOFYA 350.1.13.10 ity of [place] [facility] 4.2.7.2.686 Rah as [phone] [facility] 044 [place] 2021-07-26 2021-07-26 Letter Doctor ELENA 1.2.840.114 [id number] Univers 00:00:00 00:00:00 (Out) Unassigned, SOFYA 350.1.13.10 ity of [place] [facility] 4.2.7.2.686 Rah as [phone] [address] 2021-07-26 2021-07-26 Orders Doctor ELENA 1.2.840.114 [id number] Univers 00:00:00 00:00:00 Only Unassigned, SOFYA 350.1.13.10 ity of [place] [facility] 4.2.7.2.686 Rah as [phone] [address] 2021-06-06 2021-06-06 Orders Doctor PARKER 1.2.840.114 [id number] Univers 00:00:00 00:00:00 Only Unassigned, SOFYA 350.1.13.10 ity of [place] [facility] 4.2.7.2.686 Rah as [phone] [facility] 00[address] [place] 2021-04-24 2021-04-24 Telephone ELENA Allison 1.2.115.734 [id number] Univers 00:00:00 00:00:00 Aneatrice SOFYA 350.1.13.10 ity of HOSPITAL 4.2.7.2.686 Rah as [phone] [facility] [address] [place] 2021-04-24 2021-04-24 Letter Doctor PARKER 1.2.840.114 [id number] Univers 00:00:00 00:00:00 (Out) Unassigned, SOFYA 350.1.13.10 ity of [place] [facility] 4.2.7.2.686 Rah as [phone] [facility] [address] [place] 2021-04-24 2021-04-24 Letter Provider, [place] 1.2.906.627 [id number] Univers 00:00:00 00:00:00 (Out) [facility] 350.1.13.10 it y of Urgent Care [place] 4.2.7.2.686 [place] Mark?Blea [phone] [facility] 370 [facility] Office Building 2021-04-24 2021-04-24 Telephone Provider, [facility] [[email or web address]] 1.2.840.114 [id number] Univers 00:00:00 00:00:00 Ang [facility] 350.1.13.10 ity of Care [place] 4.2.7.2.686 Rah as Mark?Blea [phone] [facility] [address] [place] Medical Office Building 2021-04-22 2021-04-22 Laboratory Only, Ang Db Test [facility] [[email or web address]] 1.2.8 40.114 [id number] Univers 13:27:04 13:42:04 Only Viviane, Zandra Health 350.1.13.10 ity of [place] 4.2.7.2.686 Rah as Mark?Blea [phone] [facility] [address] Office [facility] 2021-04-22 2021-04-22 Outpatient R VIVIANE [facility] [id number] Univers 13:15:00 13:15:00 ZANDRA ity o f [facility] 2021-02-12 2021-02-12 Orders Doctor ELENA 1.2.840.114 [id number] Univers 00:00:00 00:00:00 Only Unassigned, SOFYA 350.1.13.10 ity of [place] [facility] 4.2.7.2.686 Rah as [phone] [address] 2021-01-16 2021-01-16 Office Amadou [facility] [[email or web address]] 1.2.840.114 [id number] Univers 15:12:18 16:29:55 Visit Wondiful [facility] 350.1.13.10 ity of [place] 4.2.7.2.686 Rah as Professio [phone] [facility] [address] Office Building One 2021-01-16 2021-01-16 Outpatient R AMADOU [facility] [id number] Univers 15:15:00 15:15:00 WONDIFUL ity o f [facility] 2021-01-14 2021-01-14 Telephone Amadou [facility] [[email or web address]] 1.2.840.114 [id number] Univers 00:00:00 00:00:00 [facility] 350.1.13.10 ity of [place] 4.2.7.2.686 Rah as Professio [phone] [address] One 2021-01-09 2021-01-09 Refdeneen Lozada [facility] [[email or web address]] 1.2.840.114 [id number] Univers 00:00:00 00:00:00 [facility] 350.1.13.10 ity of [place] 4.2.7.2.686 Rah as Professio [phone] [address] One 2020-08-15 2020-08-15 [place] Amadou [facility] [[email or web address]] 1.2.840.114 [id number] Univers 00:00:00 00:00:00 [facility]iful [facility] 350.1.13.10 ity of [place] 4.2.7.2.686 Rah as Professio [phone] [facility] nal [address] [place] [address] One 2020-07-20 2020-07-20 Refill Amadou [facility] [[email or web address]] 1.2.840.114 [id number] Univers 00:00:00 00:00:00 [facility]iful [facility] 350.1.13.10 ity of [place] 4.2.7.2.686 Rah as Professio [phone] [facility] nal [address] [place] [address] One 2020-07-15 2020-07-15 [facility] Amadou [facility] [[email or web address]] 1.2.840.114 [id number] Univers 00:00:00 00:00:00 Management [facility] 350.1.13.10 ity of [place] 4.2.7.2.686 Rah as Professio [phone] [facility] nal [address] [place] [address] One 2020-07-06 2020-07-06 [facility] Adc Fam Pob I [facility] [[email or web address]] 1.2. 840.114 [id number] Univers 08:48:15 09:08:15 Visit [place] [facility] 350.1.13.1 0 ity of [place] 4.2.7.2.686 Rah as Professio [phone] [address] Office [facility] 2020-07-06 2020-07-06 Outpatient R [facility] [id number] Univers 09:00:00 09:00:00 ity of [facility] 2020-06-28 2020-06-28 Telephone [facility] 1.2.840.114 [id number] Univers 00:00:00 00:00:00 Wondiful A [place] 350.1.13.10 ity of [place] [phone] [address] 2020-05-01 2020-05-01 Telephone [facility] 1.2.840.114 [id number] Univers 00:00:00 00:00:00 [facility] 350.1.13.10 ity of [place] 4.2.7.2.686 Rah as Professio [phone] [address] 2020-05-01 2020-05-01 Orders Doctor ELENA 1.2.840.114 [id number] Univers 00:00:00 00:00:00 Only Unassigned, SOFYA 350.1.13.10 ity of [place] [facility] 4.2.7.2.686 Rah as [phone] [address] 2020-04-30 2020-04-30 Pre [facility] 1.2.840.114 [id number] Univers 00:00:00 00:00:00 Outreach [facility] 350.1.13.10 ity of [place] 4.2.7.2.686 Rah as Professio [phone] [address] 2020-04-26 2020-04-26 [facility] 1.2.840.114 [id number] Univers 07:54:10 17:08:01 ne Visit [facility] 350.1.13.10 ity of [place] 4.2.7.2.686 Rah as Professio [phone] [address] 2020-04-26 2020-04-26 [facility] [id number] Univers 16:35:00 16:35:00 WONDIFUL ity o f [facility] 2020-04-24 2020-04-24 Telemedici [facility] 1.2.840.114 [id number] Univers 16:00:00 17:34:04 ne Visit [facility] 350.1.13.10 ity of [place] 4.2.7.2.686 Rah as Professio [phone] [address] Office [facility] 2020-04-24 2020-04-24 Outpatient R AMADOU [facility] [id number] Univers 16:00:00 16:00:00 WONDIFUL ity o f [facility] 2020-02-05 2020-02-05 Refill [facility] 1.2.840.114 [id number] Univers 00:00:00 00:00:00 Wondiful [facility] 350.1.13.10 ity of [place] 4.2.7.2.686 Rah as Professio [phone] [address] Office [facility] 2020-01-24 2020-01-24 Refill [facility] 1.2.758.703 [id number] Univers 00:00:00 00:00:00 Omayemi [facility] 350.1.13.10 it y of [place] 4.2.7.2.686 Rah as Professio [phone] [address] Office [facility] 2020-01-11 2020-01-11 Orders Doctor ELENA 1.2.840.114 [id number] Univers 00:00:00 00:00:00 Only Unassigned, SOFYA 350.1.13.10 ity of [place] [facility] 4.2.7.2.686 Rah as [phone] [address] 2019-12-30 2019-12-30 Urgent Provider, [facility] [[email or web address]] 1.2.840.114 [id number] Univers 10:22:10 10:42:10 Care Shonda Ling [facility] 350.1.13.10 ity of [place] 4.2.7.2.686 Rah as Professio [phone] [address] Office Building One 2019-12-30 2019-12-30 Outpatient R [facility] [id number] Univers 10:40:00 10:40:00 ity of [facility] 2019-11-23 2019-11-23 Telephone [facility] 1.2.840.114 [id number] Univers 00:00:00 00:00:00 [facility] 350.1.13.10 ity of [place] 4.2.7.2.686 Rah as Professio [phone] [address] Office [facility] 2019-09-15 2019-09-15 Office [facility] 1.2.840.114 [id number] Univers 15:23:40 16:09:48 Visit Cassandra [facility] 350.1.13.10 it y of [place] 4.2.7.2.686 Rah as Professio [phone] [address] Office [facility] 2019-09-15 2019-09-15 Outpatient [facility] [id number] Univers 15:20:00 15:20:00 CASSANDRA ity of [facility] 2019-04-07 2019-04-07 Telephone [facility] 1.2.840.114 [id number] Univers 00:00:00 00:00:00 Wondiful [facility] 350.1.13.10 ity of [place] 4.2.7.2.686 Rah as Professio [phone] [address] Office [facility] 2019-03-29 2019-03-29 Orders Doctor ELENA 1.2.840.114 [id number] Univers 00:00:00 00:00:00 Only Unassigned, SOFYA 350.1.13.10 ity of [place] [facility] 4.2.7.2.686 Rah as [phone] [address] 2019-03-24 2019-03-24 Telephone [facility] 1.2.840.114 [id number] Univers 00:00:00 00:00:00 W[facility]iful [facility] 350.1.13.10 ity of [place] 4.2.7.2.686 Rah as Professio [phone] [address] Office Building One 2019-03-18 2019-03-18 Telephone Amadou [facility] [[email or web address]] 1.2.840.114 [id number] Univers 00:00:00 00:00:00 Wondiful [facility] 350.1.13.10 ity of [place] 4.2.7.2.686 Rah as Professio [phone] [address] Office Building One 2019-03-16 2019-03-16 Telephone Amadou [facility] [[email or web address]] 1.2.840.114 [id number] Univers 00:00:00 00:00:00 Wondiful [facility] 350.1.13.10 ity of [place] 4.2.7.2.686 Rah as Professio [phone] [address] Office Building One 2019-03-16 2019-03-16 Telephone Amadou [facility] [[email or web address]] 1.2.840.114 [id number] Univers 00:00:00 00:00:00 Wondiful [facility] 350.1.13.10 ity of [place] 4.2.7.2.686 Rah as Professio [phone] [address] Office [facility] One 2019-03-15 2019-03-15 Office Amadou [facility] [[email or web address]] 1.2.840.114 [id number] [facility] 10:18:15 11:22:47 Visit W[facility]iful [facility] 350.1.13.10 ity of [place] 4.2.7.2.686 Rah as Professio [phone] [address] Office [facility] 2019-03-15 2019-03-15 Orders Doctor ELENA 1.2.840.114 [id number] [facility] 00:00:00 00:00:00 Only Unassigned, SOFYA 350.1.13.10 ity of [place] [facility] 4.2.7.2.686 Rah as [phone] [address] 2019-03-11 2019-03-11 [facility] 1.2.840.114 [id number] [facility] 00:00:00 00:00:00 [facility] 350.1.13.10 [facility] [place] 4.2.7.2.686 Rah as Professio [phone] [address] Office [facility] 2019-03-07 2019-03-07 Telephone Amadou [facility] [[email or web address]] 1.2.840.114 [id number] [facility] 00:00:00 00:00:00 [facility] 350.1.13.10 [facility] [place] 4.2.7.2.686 Rah as Professio [phone] [address] Office [facility] 2019-03-04 2019-03-04 [facility] Ad[facility] Fam Pob I [facility] [[email or web address]] 1.2. 840.114 [id number] [facility] 07:58:38 08:20:14 Visit [facility] 350.1.13.1 0 [facility] [place] 4.2.7.2.686 Rah as Professio [phone] [address] Office [facility] 2019-03-03 2019-03-03 Office Amadou [facility] [[email or web address]] 1.2.840.114 [id number] [facility] 13:31:12 14:15:55 Visit [facility] 350.1.13.10 [facility] [place] 4.2.7.2.686 Rah as Professio [phone] [address] Office [facility] 2019-03-03 2019-03-03 Orders Doctor ELENA 1.2.840.114 [id number] [facility] 00:00:00 00:00:00 Only Unassigned, SOFYA 350.1.13.10 [facility] of [place] [facility] 4.2.7.2.686 Rah as [phone] [facility] [address] 2019-02-17 2019-02-17 [facility] [id number] Univers 07:13:00 09:18:00 Encounter Frederick Kristi [id number] ity of [place] [id number] [place] [facility] [id number] [facility] [address] 2019-02-17 2019-02-17 Orders Doctor ELENA [id number] Univers 00:00:00 00:00:00 Only Unassigned, SOFYA [id number] ity of [facility] [id number] Rah as [id number] [facility] [address] Results This patient has no known results.
[2022-11-06] MEDS ORDERED: FUROSEMIDE 40 MG/4 ML VIAL ONE (09:48)
[2022-11-06 10:36] LABS: Albumin 3.6 g/dL (3.4-5.0); Bilirubin Direct 0.3 mg/dL (0-0.2); Bilirubin Total 1.3 mg/dL (0.2-1.0); Potassium 4.2 mEq/L (3.5-5.1); Protein, Total 7.8 g/dL (6.4-8.2)
[2022-11-06 10:47] LABS: Troponin High Sensitivity 387.8 pg/mL (<58.9)
[2022-11-06 10:48] LABS: Absolute Lymphocytes (CBC) 0.5 K/uL (0.7-4.9); Hematocrit 27.6 % (36.0-45.0); Lymphocytes % 11.3 % (15.3-44.8); MCV 77.6 fL (80-100); MPV 7.5 fL (7.6-11.3); RBC Red Blood Cell Count 3.56 M/uL (3.86-4.86)
--- NOTE | 2022-11-06 11:04 | RAD REPORT ---
EXAM DESCRIPTION: RAD - Chest Single View - 11/06/2022 10:47 am CLINICAL HISTORY: DYSPNEA Chest pain. COMPARISON: <Comparisons> FINDINGS: Portable technique limits examination quality. Moderately severe bilateral pulmonary opacities likely represent pulmonary edema. The heart is modera tely enlarged. Small moderate pleural effusions. IMPRESSION: Moderate CHF versus volume overload pattern.
--- NOTE | 2022-11-06 11:35 | RAD REPORT ---
EXAM DESCRIPTION: CTAbdomen Pelvis W Contrast - 11/06/2022 11:27 am CLINICAL HISTORY: Abdominal pain. ABD PAIN COMPARISON: CT ABD PELVIS W CONTRAST dated 02/03/2013 TECHNIQUE: Biphasic CT imaging of the abdomen and pelvis was performed with 100 ml non-ionic IV cont rast. All CT scans are performed using dose optimization technique as appropriate and may include automated exposure control or mA/KV adjustment according to patient size. FINDINGS: Moderate bilateral pleural effusions. Fundoplication noted. Mild fatty liver. Gallbladder appears absent. The spleen, pancreas, adrenal glands and kidneys show n o acute process. Small benign cyst right kidney. No bowel obstruction, free air, free fluid or abscess. Nonvisualized appendix. No evidence of signi ficant lymphadenopathy. Mild lumbar degenerative changes. IMPRESSION: No acute intra-abdominal or pelvic finding. Moderate bilateral pleural effusions.
--- NOTE | 2022-11-06 12:07 | ER ---
Nurse's Notes [facility] Name: Celina Lyons Age: 72 yrs Sex: Female : 1950 Arrival Date: 11/06/2022 Time: 09:02 Bed 13 Private MD: Aditya Caraballo Diagnosis: Acute pulmonary edema;Hypo-osmolality and hyponatremia Presentation: 11/06 09:20 Chief complaint: Patient states: SOB x 2 weeks ago, pt states "I've had to sleep in a [facility] recliner for the past 2 weeks and I haven't really been eating for the past 3 days because of the shortness of breath". Pt also reports generalized weakness, appears pale during triage. Increased SOB noted when transferring from wheelchair to bed. 09:20 Coronavirus screen: shortness of breath. Ebola Screen: Patient denies travel to an [facility] Ebola-affected area in the 21 days before illness onset. Initial Sepsis Screen: Does the patient meet any 2 criteria? RR > 20 per min. HR > 90 bpm. Does the patient have a suspected source of infection? No. Patient's initial sepsis screen is negative. Risk Assessment: Do you want to hurt yourself or someone else? Patient reports no desire to harm self or others. Onset of symptoms was October 2022. 09:20 Acuity: JOSE 2 aa5 09:20 Method Of Arrival: Wheelchair aa Historical: - Allergies: 09:20 Codeine; aa5 09:20 Pineapple; aa5 - PMHx: 09:20 Diabetes - NIDDM; Endometriosis; Thyroid problem; toe amputations; Anemia; Hypertensive aa5 disorder; - PSHx: 09:20 Thyroid and parathyroid removed; aa5 - Immunization history:: Adult Immunizations up to date. - Social history:: Smoking status: Patient denies any tobacco usage or history of. Patient/guardian denies using alcohol. Screenin:04 [facility] ED Fall Risk Assessment (Adult) History of falling in the last 3 months, ld1 including since admission No falls in past 3 months (0 pts). Abuse screen: Denies threats or abuse. Denies injuries from another. Nutritional screening: No deficits noted. Tuberculosis screening: No symptoms or risk factors identified. Assessment: 10:04 General: Appears in no apparent distress. uncomfortable, Behavior is calm, cooperative, ld1 appropriate for age. Pain: Complains of pain in abdomen Pain does not radiate. Pain currently is 8 out of 10 on a pain scale. Quality of pain is described as throbbing. Neuro: Level of Consciousness is awake, alert, obeys commands, Oriented to person, place, time, situation. Cardiovascular: Capillary refill < 3 seconds Patient's skin is warm and dry. Rhythm is sinus rhythm. Respiratory: Reports shortness of breath at rest on exertion Airway is patent Respiratory effort is even, labored, Breath sounds are clear bilaterally. the patient has mild shortness of breath. GI: Abdomen is round non-distended. : No signs and/or symptoms were reported regarding the genitourinary system. EENT: No signs and/or symptoms were reported regarding the EENT system. Derm: No signs and/or symptoms reported regarding the dermatologic system. Musculoskeletal: No signs and/or symptoms reported regarding the musculoskeletal system. 10:44 Reassessment: Patient appears in no apparent distress at this time. Patient and/or ld1 family updated on plan of care and expected duration. Pain level reassessed. Patient is alert, oriented x 3, equal unlabored respirations, skin warm/dry/pink. 10:45 Reassessment: troponin 387.8. eh3 Vital Signs: 09:20 BP 134 / 94; Pulse 106; Resp 30 S; Temp 98.5(O); Pulse Ox 92% on R/A; Weight 82.55 kg aa5 (R); Height 5 ft. 1 in. (R); 09:30 Resp 27 S; Pulse Ox 96% on 2 lpm NC; aa5 10:04 BP 154 / 94; Pulse 98; Resp 26; Pulse Ox 96% on 2 lpm NC; Pain 8/10; ld1 09:20 Body Mass Index 34.39 (82.55 kg, 154.94 cm) aa5 10:04 Pain Scale: Adult ld1 ED Course: 09:07 Patient arrived in ED. am2 09:07 Aditya Caraballo MD is Private Physician. am2 09:10 Chun Moreno MD is Attending Physician. rt 09:20 Arm band placed on Patient placed in an exam room, on a stretcher. aa5 09:30 Sheyla Casarez RN is Primary Nurse. ld1 09:35 Triage completed. aa5 10:04 Patient has correct armband on for positive identification. Placed in gown. Bed in low ld1 position. Call light in reach. Side rails up X2. traffic monitor specialist on. Pulse ox on. NIBP on. Door closed. Noise minimized. Warm blanket given. 10:04 No provider procedures requiring assistance completed. ld1 10:44 Inserted saline lock: 20 gauge in left wrist, using aseptic technique. Blood collected. ld1 10:49 XRAY Chest (1 view) In Process Unspecified. EDMS 11:28 CT Abd/Pelvis - IV Contrast Only In Process Unspecified. EDMS 12:06 Aditya Caraballo MD is Hospitalizing Provider. rt 16:14 Notified ED physician of a critical lab result(s). Na+ 118, Troponin 654.1. eh3 Administered Medications: 10:44 Drug: Furosemide IVP 40 mg Route: IVP; Site: left wrist; ld1 11:19 Follow up: Response: No adverse reaction ld1 Medication: 10:04 VIS not applicable for this client. ld1 Outcome: 12:06 Decision to Hospitalize by Provider. rt 17:10 Patient left the ED. db Signatures: Dispatcher [employer] EDMS Radha Whitten, RN RN aa5 Angélica Ware am2 Sheyla Casarez, RN RN ld1 Teresita Mims, LORAINE RN eh3 Casandra Herrera, RN RN db Chun Moreno MD MD rt Corrections: (The following items were deleted from the chart) 10:05 10:04 BP 154 / 94; Pulse 98bpm; Resp 26bpm; Pulse Ox 96% 2 lpm Nasal Cannula; ld1 ld1
--- NOTE | 2022-11-06 12:07 | EDPHYS ---
Physician Documentation [facility] Name: Celina Lyons Age: 72 yrs Sex: Female : 1950 Arrival Date: 11/06/2022 Time: 09:02 Bed 13 Private MD: Aditya Caraballo ED Physician Chun Moreno HPI: 11/06 09:48 This 72 yrs old Female presents to ER via Wheelchair with complaints of Breathing rt Difficulty. 09:48 Patient presents to the ED with 2 weeks of progressively worsening orthopnea and rt dyspnea on exertion. The patient states that the symptoms have progressively worsened. She reports that she has gained about 30 pounds over the past month. She does report edema. She reports that her abdomen is swollen and she has some mild epigastric pain. Patient denies other acute complaints at this time including chest pain. Symptoms are moderate in severity, no other aggravating or alleviating factors.. Historical: - Allergies: 09:20 Codeine; aa5 09:20 Pineapple; aa5 - PMHx: 09:20 Diabetes - NIDDM; Endometriosis; Thyroid problem; toe amputations; Anemia; Hypertensive aa5 disorder; - PSHx: 09:20 Thyroid and parathyroid removed; aa5 - Immunization history:: Adult Immunizations up to date. - Social history:: Smoking status: Patient denies any tobacco usage or history of. Patient/guardian denies using alcohol. ROS: 09:48 Constitutional: Negative for fever, chills, and weight loss, Cardiovascular: Negative rt for chest pain, palpitations, and edema, Respiratory: Negative for shortness of breath, cough, wheezing, and pleuritic chest pain, MS/Extremity: Negative for injury and deformity, Skin: Negative for injury, rash, and discoloration, Neuro: Negative for headache, weakness, numbness, tingling, and seizure, Psych: Negative for depression, anxiety, suicide ideation, homicidal ideation, and hallucinations. 09:48 Respiratory: Positive for cough, orthopnea, shortness of breath. Exam: 09:48 Constitutional: This is a well developed, well nourished patient who is awake, alert, rt and in no acute distress. Head/Face: Normocephalic, atraumatic. Chest/axilla: Normal chest wall appearance and motion. Nontender with no deformity. No lesions are appreciated. Cardiovascular: Regular rate and rhythm with a normal S1 and S2. No gallops, murmurs, or rubs. Normal PMI, no JVD. No pulse deficits. Skin: Warm, dry with normal turgor. Normal color with no rashes, no lesions, and no evidence of cellulitis. MS/ Extremity: Pulses equal, no cyanosis. Neurovascular intact. Full, normal range of motion. Neuro: Awake and alert, GCS 15, oriented to person, place, time, and situation. Cranial nerves II-XII grossly intact. Motor strength 5/5 in all extremities. Sensory grossly intact. Cerebellar exam normal. Normal gait. Psych: Awake, alert, with orientation to person, place and time. Behavior, mood, and affect are within normal limits. 09:48 Respiratory: Diminished breath sounds and bibasilar crackles heard in the bases. Mild respiratory distress. 10:23 ECG was reviewed by the Attending Physician. rt Vital Signs: 09:20 BP 134 / 94; Pulse 106; Resp 30 S; Temp 98.5(O); Pulse Ox 92% on R/A; Weight 82.55 kg aa5 (R); Height 5 ft. 1 in. (R); 09:30 Resp 27 S; Pulse Ox 96% on 2 lpm NC; aa5 10:04 BP 154 / 94; Pulse 98; Resp 26; Pulse Ox 96% on 2 lpm NC; Pain 8/10; ld1 09:20 Body Mass Index 34.39 (82.55 kg, 154.94 cm) aa5 10:04 Pain Scale: Adult ld1 MDM: 09:30 Patient medically screened. rt 13:13 Differential diagnosis: Pneumonia, pneumothorax, pulmonary embolism, pulmonary edema, rt CHF. Data reviewed: vital signs, nurses notes. Consideration of Admission/Observation Patient was admitted/placed on observation. Management of patient was discussed with the following: Primary Care Provider: Agrees to admit. I considered the following discharge prescriptions or medication management in the emergency department Medications were administered in the Emergency Department. See MAR. Test considered but Not performed: CT: Low suspicion for PE, CT angiogram not indicated. Care significantly affected by the following chronic conditions: Diabetes. Counseling: I had a detailed discussion with the patient and/or guardian regarding: the historical points, exam findings, and any diagnostic results supporting the discharge/admit diagnosis, lab results, radiology results, the need for further work-up and treatment in the hospital. Response to treatment: the patient's symptoms have markedly improved after treatment. 11/06 09:39 Order name: Basic Metabolic Panel; Complete Time: 11:10 rt 11/06 09:39 Order name: CBC with Diff; Complete Time: 11:10 rt 11/06 09:39 Order name: LFT's; Complete Time: 11:10 rt 11/06 09:39 Order name: NT PRO-BNP; Complete Time: 11:10 rt 11/06 09:39 Order name: Troponin HS; Complete Time: 11:10 rt 11/06 09:40 Order name: Type And Screen; Complete Time: 11:10 rt 11/06 12:14 Order name: Urinalysis w/ reflexes EDCT 11/06 12:14 Order name: Basic Metabolic Panel EDCT 11/06 12:14 Order name: Basic Metabolic Panel; Complete Time: 16:17 EDMS 11/06 12:14 Order name: Basic Metabolic Panel EDCT 11/06 12:14 Order name: Basic Metabolic Panel EDCT 11/06 12:14 Order name: Troponin High Sensitivity EDCT 11/06 12:14 Order name: Troponin High Sensitivity; Complete Time: 16:17 EDMS 11/06 12:14 Order name: Troponin High Sensitivity EDCT 11/06 12:14 Order name: Troponin High Sensitivity EDCT 11/06 12:28 Order name: ABO/RH no charge; Complete Time: 16:17 EDCT 11/06 09:39 Order name: XRAY Chest (1 view); Complete Time: 11:10 rt 11/06 09:39 Order name: CT Abd/Pelvis - IV Contrast Only; Complete Time: 11:38 rt 11/06 09:39 Order name: EKG; Complete Time: 09:40 rt 11/06 12:12 Order name: CONS Physician Consult EDCT 11/06 12:14 Order name: Heart Healthy EDCT 11/06 09:39 Order name: Cardiac monitoring; Complete Time: 09:39 rt 11/06 09:39 Order name: EKG - Nurse/Tech; Complete Time: 10:04 rt 11/06 09:39 Order name: IV Saline Lock; Complete Time: 10:44 rt 11/06 09:39 Order name: Labs collected and sent; Complete Time: 10:04 rt 11/06 09:39 Order name: O2 Per Protocol; Complete Time: 09:39 rt 11/06 09:39 Order name: O2 Sat Monitoring; Complete Time: 09:39 rt 11/06 10:25 Order name: Labs - recollect needed; Complete Time: :44 em1 EC: Rate is 98 beats/min. Rhythm is regular, Normal Sinus Rhythm with No ectopy. QRS [place] rt is Normal. IA interval is normal. QRS interval is normal. QT interval is normal. No Q waves. Clinical impression: NSR w/ Non-specific ST/T Changes. Interpreted by me. Administered Medications: : Drug: Furosemide IVP 40 mg Route: IVP; Site: left wrist; ld1 11:19 Follow up: Response: No adverse reaction ld1 Disposition Summary: 11/06/22 12:06 Hospitalization Ordered Hospitalization Status: Observation rt Provider: Aditya Caraballo rt Location: Telemetry/MedSurg (observation) rt Condition: Stable rt Problem: new rt Symptoms: have improved rt Bed/Room Type: Standard rt Room Assignment: 414(11/06/22 14:54) aa5 Diagnosis - Acute pulmonary edema rt - Hypo-osmolality and hyponatremia rt Forms: - Medication Reconciliation Form rt - SBAR form rt Signatures: Dispatcher [employer] Lorin Henry RN RN Santana Koehler em1 Radha Whitten RN RN aa5 Sheyla Casarze RN RN ld1 Chun Moreno MD MD rt Corrections: (The following items were deleted from the chart) 14:54 12:06 rt dw 14:54 14:54 414 aa5
[2022-11-06 15:45] LABS: Potassium 4.2 mEq/L (3.5-5.1)
[2022-11-06 16:14] LABS: Troponin High Sensitivity 654.1 pg/mL (<58.9)
[2022-11-06 19:14] LABS: Urine Bacteria None Seen /HPF (<20); Urine Bilirubin NEGATIVE (Negative); Urine Blood 1+ (Negative); Urine Clarity Clear (Clear); Urine Color Colorless (Yellow); Urine Glucose NEGATIVE (Negative); Urine Mucus Slight /HPF (None Seen); Urine Protein NEGATIVE (Negative); Urine RBC <5 /HPF (None Seen); Urine Urobilinogen Normal (Normal)
[2022-11-06 19:24] LABS: Potassium 4.1 mEq/L (3.5-5.1)
[2022-11-06 19:26] LABS: Troponin High Sensitivity 782.2 pg/mL (<58.9)
[2022-11-06] MEDS ORDERED: BISACODYL 10 MG RECTAL SUPP PR ONE (20:27)
[2022-11-06] MEDS ORDERED: ONDANSETRON 4 MG/2 ML VIAL IV PRN (21:39)
[2022-11-06] MEDS ORDERED: SODIUM CHLORIDE 0.9% 10ML INJ IV PRN (21:40)
[2022-11-06] MEDS ORDERED: PANTOPRAZOLE 40 MG INJ IVP ONE (21:41)
[2022-11-06] MEDS ORDERED: TEMAZEPAM 15 MG CAP PO PRN (21:43)
[2022-11-06] MEDS ORDERED: GLUCAGON 1 MG/VIAL IM PRN (23:19)
[2022-11-06] MEDS ORDERED: D50W 25 GM/50 ML SYRINGE IV PRN (23:19)
[2022-11-06 23:33] LABS: Potassium 4.2 mEq/L (3.5-5.1); Troponin High Sensitivity 716.1 (<58.9)
[2022-11-06] MEDS ORDERED: D10W 125 ML IV PRN (23:38)
[2022-11-06] MEDS ORDERED: NA CHLORIDE 0.9% 1,000 ML IV SCH (23:45)
[2022-11-07 04:50] LABS: Absolute Lymphocytes (CBC) 1.1 K/uL (0.7-4.9); Hematocrit 25.6 % (36.0-45.0); Lymphocytes % 21.9 % (15.3-44.8); MCV 78.3 fL (80-100); MPV 7.4 fL (7.6-11.3); RBC Red Blood Cell Count 3.27 M/uL (3.86-4.86)
[2022-11-07 05:23] LABS: T4,Total 8.8 ug/dL (4.8-13.9)
[2022-11-07 05:24] LABS: Thyroid Stimulating Hormone 4.6 uIU/mL (0.358-3.740)
[2022-11-07] MEDS ORDERED: LEVOTHYROXINE SOD 0.075 MG TAB PO SCH ×3 (06:30)
[2022-11-07] MEDS: INSULIN -REGULAR HUMAN 50 UNIT/0.5 ML ML SQ SCH ×4 (07:30→21:00)
--- NOTE | 2022-11-07 07:46 | RAD REPORT ---
EXAM DESCRIPTION: Michael Single View4 5:55 am CLINICAL HISTORY: Shortness of breath COMPARISON: November 06, 2022 FINDINGS: Mild bilateral interstitial lung opacities is improved Small to moderate bilateral pleural effusions Cardiomegaly IMPRESSION: The these findings probably indicate CHF
[2022-11-07] MEDS: FUROSEMIDE 40 MG/4 ML VIAL IV SCH ×2 (08:47→17:18)
[2022-11-07] MEDS: PANTOPRAZOLE 40 MG INJ IVP SCH (08:48)
[2022-11-07 09:12] LABS: Potassium 3.7 mEq/L (3.5-5.1)
[2022-11-07] MEDS ORDERED: Magnesium Sulfate 2gm IVPB 2 G/50 ML BAG IV ONE (09:21)
[2022-11-07] MEDS ORDERED: POTASSIUM CL SA 10 MEQ TAB PO ONE (09:21)
[2022-11-07 17:56] LABS: Absolute Lymphocytes (CBC) 1.3 K/uL (0.7-4.9); Hematocrit 26.7 % (36.0-45.0); Lymphocytes % 24.9 % (15.3-44.8); MCV 77.5 fL (80-100); MPV 7.6 fL (7.6-11.3); RBC Red Blood Cell Count 3.44 M/uL (3.86-4.86)
[2022-11-07 18:17] LABS: Potassium 4.3 mEq/L (3.5-5.1)
--- NOTE | 2022-11-07 19:48 | HP ---
Date of Admission: 11/07/2022 Chief Complaint: Shortness of breath. History Of Present Illness: The patient came to the emergency room after a few day history of progre ssive dyspnea, as she actually dates symptoms a couple of weeks ago; however, it became progressive a nd she has noticed some swelling and significant weight gain. When she presented to the ER, diagnosi s of CHF was made and she was treated accordingly. The patient had a banding procedure over 30 years ago. Since that time, she has had 2 intermittent gastric discomfort; however, she states in the pas t 3 or 4 days she has been rather anorectic, taking some sips of water and that is all. Past Medical History: The patient has a history of thyroidectomy and parathyroidectomy and replaceme nt of thyroid hormone. She has also been a diabetic for a number of years now with relatively good c ontrol on oral medication and then she was changed to weekly shots. She states she has not had any c ardiac problems in the past and actually seldom goes to physician unless it is absolutely essential. Social History: Nonsmoker, nondrinker. Family History: Noncontributory. Physical Examination: General: The patient is a slightly obese elderly female. Vital Signs: Stable vital signs. Head And Neck: Normocephalic. Pupils equal and reactive to light and accommodation. Fundi negative . Trachea midline. Thyroid not palpable. Lungs: High-pitched rhonchi and rales bilaterally. Cardiovascular: PMI in midclavicular line. Heart sounds normal. Abdomen: Some ascites. Bowel sounds hypoactive. Extremities: Moderately dehydrated, good tone, bilateral reflexes physiologic. Rectal: Deferred. Pelvic: Deferred. Impression: Acute congestive heart failure and hypothyroidism, controlled by history. Plan: The patient will be admitted, treated with Lasix IV and depending on the workup, further medic ation will be instituted. Also, Cardiology will be consulted. The patient states she has never seen a scissors grinder. HR/MODL Voice ID: [id number]
--- NOTE | 2022-11-07 19:52 | PN ---
Date of Progress Note: 11/07/2022 The patient states she feels somewhat better after the IV Lasix, which she has had a couple of doses now with marked diuresis. Her legs have gone down. Her abdomen has improved. Her sodium is still a n issue as well as her magnesium. She is on the protocol for the latter. We will monitor the former . An echo has also been done. HR/MODL Voice ID: [id number] Report ID: [id number]
[2022-11-07] MEDS ORDERED: MAGNESIUM SULFATE 1 gm IVPB 1 GM/100 ML BAG IV ONE (20:00)
[2022-11-08] MEDS: FUROSEMIDE 40 MG/4 ML VIAL IV SCH ×3 (03:08→16:33)
[2022-11-08 06:22] LABS: Magnesium 1.8 mg/dL (1.6-2.4); Potassium 3.7 mEq/L (3.5-5.1)
[2022-11-08] MEDS: LEVOTHYROXINE SOD 0.075 MG TAB PO SCH (06:31)
[2022-11-08] MEDS: INSULIN -REGULAR HUMAN 50 UNIT/0.5 ML ML SQ SCH ×4 (07:30→21:00)
[2022-11-08] MEDS: PANTOPRAZOLE 40 MG INJ IVP SCH (08:08)
[2022-11-08] MEDS ORDERED: METOPROLOL TARTRATE 5 MG/5 ML INJ IV STA (09:57)
[2022-11-08 11:47] VITALS: BMI 36.1
--- NOTE | 2022-11-08 11:55 | PN ---
Date of Progress Note: 11/08/2022 Patient had a run of AFib or A flutter responsive to IV metoprolol. Discussion of the case with Card iology to add a beta-stephanie to the regimen and Lovenox. The latter could be an issue as the patient has had chronic anemia with a hemoglobin below 10 with no apparent active bleeding. Patient states she did feel somewhat strange during that episode. However, when she got the IV meds, she felt somew hat better. Her blood work has improved except for the sodium, which we will consult Nephrology. HR/MODL Voice ID: [id number] Report ID: [id number]
[2022-11-08] MEDS: METOPROLOL TAR 25 MG TAB PO SCH (16:33)
[2022-11-08] MEDS: ENOXAPARIN 40 MG/0.4 ML SQ SCH (16:33)
--- NOTE | 2022-11-08 19:25 | CON ---
Date of Consultation: 11/07/2022 Reason For Consultation: Congestive heart failure. History Of Present Illness: Ms. Lyons is 72 years old, has a history of PAD and has had a toe amput ated, has a history of hypertension, has had a history of thyroidectomy, diabetes. Comes in with new onset congestive heart failure, PND, orthopnea, pedal edema, shortness of breath. Denied palpitatio ns or syncope. Denied fever or chills. Echocardiogram, which was done upon arrival with ejection fr action about 40% with moderate mitral regurgitation. Allergies: SHE IS ALLERGIC TO CODEINE AND PINEAPPLE. Review of Systems: Negative. Social History: Negative. Family History: Noncontributory. Medications: At home include Trulicity and Synthroid. Physical Examination: Vital Signs: Stable, afebrile. Shortness of breath lying flat. Sinus rhythm. HEENT: Negative. Neck: Supple. No bruit. Chest: Reveals rales at both bases. Abdomen: Benign. Extremities: Revealed no clubbing, cyanosis. She had 1+ edema to the knees. Diagnostic Data: Troponin was 716. Hemoglobin 8.8. Creatinine is adequate. Chest x-ray showed CHF . Echocardiogram stated earlier. Sodium is 120. Hemoglobin 8.8. Impression And Plan: Acute systolic congestive heart failure causing hyponatremia, dilutional anemia . I would be aggressive with her and use IV Lasix for diuresis. Avoid hydration with normal saline. I think we have echocardiogram once her blood pressure tolerates. She really should be on ERICKSON inhi bitor, low-dose beta-stephanie, preferably Lopressor for now. I would recommend strongly that Nephrolo gy see her. Her blood pressure is very well controlled. Diabetes, pretty well controlled. I would not transfuse her for now. I think when she is diuresed, her hemoglobin will go up. We will continu e to watch her electrolytes, magnesium, potassium, creatinine. We will see what Nephrology says. We will continue to follow. PRINCESS/KAREYL Voice ID: [id number] Report ID: [id number]
--- NOTE | 2022-11-08 22:57 | P.CNS ---
Date of Consult: 11/09/22 History of Present Illness: Pt is a 72 y/o female who presented with complaints of shortess of breath which had been going on fro about one week prior to admission. Pt was getting diuresed at home before admission to the hospital. On arrival pt was noted to have a sodium level of 119 to 120 and has remained so despite bospitalization. Pt reports decreased po intake inhouse and prior to admission. Inhouse was on iv lasix as well. Renal has been consulted for hyponatremia Allergies codeine Allergy (Verified 11/06/22 18:02) Anaphylaxis pineapple Allergy (Verified 11/06/22 18:02) Anaphylaxis Home Medications: Dulaglutide [Trulicity] 1.5 mg SQ EVERY 7TH DAY 11/06/22 Levothyroxine Sodium 75 mcg PO DAILY 11/06/22 - Past Medical/Surgical History Diabetic: Yes -: DM -: Neuropathy -: Obesity -: Hysterectomy -: Partial thyroidectomy/parathyroid glands removed -: Appendectomy -: Cholecystectomy -: Lab band -: tumors removed from breast - Family History Mother Notes: asthma, hietal hernia Father Notes: from asbestosis Sister Notes: from bowel obstruction. Brother Medical History: Heart disease, Diabetes Notes: from heart disease. - Social History Smoking Status: Never smoker Alcohol use: No CD- Drugs: No Caffeine use: Yes Review of Systems 10-point ROS is otherwise unremarkable Physical Examination Temp Pulse Resp BP Pulse Ox 97.2 F 93 H 16 108/74 98 11/08/22 20:00 11/08/22 20:00 11/08/22 20:00 11/08/22 20:00 11/08/22 20:00 Conclusions/Impression: Problems MARLI likely cardiorenal Acute on chronic hyponatremia likely due to decreased solute intake Hypertension Diabetes Plan Agree with holding diuresis Encouraged increased po intkae Woo ordered R/o pseudohyponatremia, will check lipid and total protein R/O hypothyroidism as well Check urine studies as well as serum osmlolality Further recommendations pending lab trend BMP q 8h Thank you for this interesting consult, will continue to follow.
[2022-11-08 23:50] LABS: Potassium 3.8 mEq/L (3.5-5.1)
[2022-11-09] MEDS ORDERED: SODIUM CHLORIDE 1 GM TAB PO ONE (00:23)
[2022-11-09] MEDS: FUROSEMIDE 40 MG/4 ML VIAL IV SCH ×2 (01:21→08:27)
[2022-11-09] MEDS: METOPROLOL TAR 25 MG TAB PO SCH ×2 (05:25→17:14)
[2022-11-09] MEDS: LEVOTHYROXINE SOD 0.075 MG TAB PO SCH (05:25)
[2022-11-09 06:33] LABS: Potassium 3.5 mEq/L (3.5-5.1)
[2022-11-09] MEDS: INSULIN -REGULAR HUMAN 50 UNIT/0.5 ML ML SQ SCH ×4 (07:30→21:00)
[2022-11-09] MEDS: POTASSIUM CL SA 10 MEQ TAB PO SCH (08:27)
[2022-11-09] MEDS: PANTOPRAZOLE 40 MG INJ IVP SCH (08:28)
--- NOTE | 2022-11-09 08:55 | EKG ---
Test Date: 2022-11-06 Test Time: 10:05:19 Show Host: BETTE MEASUREMENT RESULTS: Intervals: Rate: 98 CT: 132 QRSD: 86 QT: 326 QTc: 416 Brantley: P: 10 CT: 132 QRS: 19 T: 154 INTERPRETIVE STATEMENTS: Normal sinus rhythm Low voltage QRS Cannot rule out Anterior infarct, age undetermined ST & T wave abnormality, consider lateral ischemia Abnormal ECG No previous ECG available for comparison Electronically Signed On 11-09-22 08:50:20 CDT by Armani Adrian
[2022-11-09] MEDS ORDERED: [UNRECOGNIZED DRUG - OTHER] IV SCH (16:00)
[2022-11-09] MEDS ORDERED: UREA 15 GM POWDER PACKET PO SCH (16:00)
[2022-11-09 16:26] LABS: Potassium 3.6 mEq/L (3.5-5.1)
[2022-11-09] MEDS: ENOXAPARIN 40 MG/0.4 ML SQ SCH (16:36)
--- NOTE | 2022-11-09 16:37 | PN ---
Date of Progress Note: 11/09/2022 The patient states she feels somewhat better. She is starting to eat very little and has some oral i ntake; however, she says she does feel stronger over the past day or 2 compared to when she came in. However, her sodium has dropped to 117, therefore the diuresis has stopped. Awaiting Nephrology con melanie. Some difficulty with obtaining blood for monitoring; however, we will continue as the electrol ytes obviously are corrected. We will repeat a chest x-ray in the a.m. as well. HR/MODL Voice ID: [id number] Report ID: [id number]
[2022-11-09 16:46] LABS: Protein, Total 7.3 g/dL (6.4-8.2); Uric Acid 8.6 mg/dL (2.6-6.0)
[2022-11-09 16:47] LABS: Thyroid Stimulating Hormone 4.08 uIU/mL (0.358-3.740)
--- NOTE | 2022-11-09 16:50 | RAD REPORT ---
EXAM DESCRIPTION: US - Urinary Bladder - 11/09/2022 4:35 pm CLINICAL HISTORY: CHECK FOR URINARY RETENTION COMPARISON: No comparisons TECHNIQUE: Real-time sonographic evaluation of the urinary bladder postvoid volume measurements was performed. FINDINGS: Trace postvoid residual of 6 mL noted.
[2022-11-09 21:18] LABS: Potassium 3.6 mEq/L (3.5-5.1)
[2022-11-10 05:23] LABS: Potassium 3.6 mEq/L (3.5-5.1)
[2022-11-10] MEDS: LEVOTHYROXINE SOD 0.075 MG TAB PO SCH (06:18)
[2022-11-10] MEDS: METOPROLOL TAR 25 MG TAB PO SCH ×2 (06:18→17:39)
--- NOTE | 2022-11-10 07:04 | ECHO ---
HEIGHT: 5 ft 1 in WEIGHT: 191 lb 0 oz DATE OF STUDY: 11/07/[address]: Aditya Caraballo MD 2-DIMENSIONAL: YES M.MODE: YES DOPPLER: YES COLOR FLOW: YES TDS: YES PORTABLE: YES DEFINITY: BUBBLE STUDY: DIAGNOSIS: CONGESTIVE HEART FAILURE CARDIAC HISTORY: CATHERIZATION: SURGERY: PROSTHETIC VALVE: PACEMAKER: MEASUREMENTS (cm) DIASTOLIC (NORMALS) SYSTOLIC (NORMALS) IVSd 0.9 (0.6-1.2) LA Diam 3.6 (1.9-4.0) LVEF 42% LVIDd 4.7 (3.5-5.7) LVIDs 3.7 (2.0-3.5) %FS 21% LVPWd 1.1 (0.6-1.2) Ao Diam 2.9 (2.0-3.7) 2 DIMENSIONAL ASSESSMENT: RIGHT ATRIUM: NORMAL LEFT ATRIUM: NORMAL RIGHT VENTRICLE: NORMAL LEFT VENTRICLE: NORMAL SIZE TRICUSPID VALVE: NORMAL MITRAL VALVE: NORMAL PULMONIC VALVE: NORMAL AORTIC VALVE: SCLEROSIS PERICARDIAL EFFUSION: NONE AORTIC ROOT: NORMAL LEFT VENTRICULAR WALL MOTION: MILD GLOBAL HYPOKINESIS DOPPLER/COLOR FLOW: MILD TO SEVERE MITRAL REGURGITATION COMMENTS: 1. TECHNICALLY DIFFICULT STUDY 2. MODERATE TO SEVERE MITRAL REGURGITATION 3. MILD GLOBAL HYPOKINESIS 4. AORTIC SCLEROSIS TECHNOLOGIST: FAREED RUSSO
[2022-11-10] MEDS: INSULIN -REGULAR HUMAN 50 UNIT/0.5 ML ML SQ SCH ×4 (07:30→20:42)
[2022-11-10] MEDS: UREA 15 GM POWDER PACKET PO SCH ×2 (07:58→20:46)
[2022-11-10] MEDS: POTASSIUM CL SA 10 MEQ TAB PO SCH (07:58)
--- NOTE | 2022-11-10 10:05 | RAD REPORT ---
EXAM DESCRIPTION: RAD - Chest Single View - 11/10/2022 9:49 am CLINICAL HISTORY: pul edema Chest pain. COMPARISON: Chest Single View dated 11/07/2022; Chest Single View dated 11/06/2022; CHEST SINGLE VIEW dated 10/30/2014 FINDINGS: Portable technique limits examination quality. Mild to moderate pulmonary edema is seen with small bilateral pleural effusions. The heart is mildly enlarged in size. No displaced fractures. IMPRESSION: Mild to moderate CHF. Findings appear similar to 11/07/2022.
[2022-11-10] MEDS: ENOXAPARIN 40 MG/0.4 ML SQ SCH (16:07)
[2022-11-10] MEDS: FUROSEMIDE 20 MG TABLET PO SCH (17:39)
--- NOTE | 2022-11-10 19:54 | PN ---
Date of Progress Note: 11/09/2022 History Of Present Illness: Ms. Lyons was admitted to Dr. Caraballo. I am following her because of a cute systolic congestive heart failure with ejection fraction about 40% to 45%, mild to moderate mitr al regurgitation, significant hyponatremia. We initially tried IV Lasix. She diuresed well, but her sodium continued to drop. Her creatinine has increased. Nephrology has been consulted. Gallblad[place] r ultrasound has been done and it is negative. Labs; sodium is down to 118. No cardiac symptoms. A fter obtaining detailed history from Ms. Lyons, she stated that she drinks ice or ice water pretty m uch all day long as long as she is awake. 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 We ma y need to do some food restriction. Nephrology consultation will be appreciated. Case has been disc ussed with Dr. Caraballo. For now, I will definitely hold the Lasix. Consider salt tablets. Avoid ag gressive hydration. NB/MODL Voice ID: [id number] Report ID: [id number]
[2022-11-10 20:18] LABS: Potassium 3.8 mEq/L (3.5-5.1)
--- NOTE | 2022-11-10 22:09 | PN ---
Date of Progress Note: 11/10/2022 The patient feels somewhat better today, although she is still short of breath. No significant joyce e in the fluid in the lung. After discussion with Nephrology, we will add Lasix p.o. to the regimen and also have a dietary consultation. She is to continue on the same regimen as her sodium has now g one from 117 to 122. We will decrease her fingersticks pre meals to the blood tests for her electrol ytes and continue with the blood sugar coverage if necessary, although they have been stable to date. The patient will continue her Lovenox. She has put out fair amount of urine; however, it is decrea sed markedly since the IV Lasix. Diarrhea has occurred. However, I do not want to change the regime n today, perhaps tomorrow if her sodium continues to improve with a target dose of 128. HR/MODL Voice ID: [id number] Report ID: [id number]
[2022-11-11] MEDS: LEVOTHYROXINE SOD 0.075 MG TAB PO SCH (05:50)
[2022-11-11] MEDS: METOPROLOL TAR 25 MG TAB PO SCH ×2 (05:50→17:31)
--- NOTE | 2022-11-11 05:52 | P.PN ---
Subjective Date of Service: 11/11/22 Subjective: Improving Pt states she is only able to eat a little at a time and has to take these medications. Shortness of breath imprpved at this time Physical Examination - Vital Signs Temperature: 97.5 F Blood Pressure: 134/70 Pulse: 76 Respirations: 16 Pulse Ox (%): 100 - Physical Exam General: Alert, In no apparent distress HEENT: Atraumatic, PERRLA, EOMI Neck: Supple, JVD not distended Respiratory: Clear to auscultation bilaterally, Normal air movement Cardiovascular: Regular rate/rhythm, Normal S1 S2 Musculoskeletal: No tenderness Integumentary: No rashes Neurological: Normal speech, Normal tone, Normal affect Assessment And Plan - Plan Problems MARLI likely cardiorenal Acute on chronic hyponatremia likely due to decreased solute intake Hypertension Diabetes Plan Sodium improving with ure-na Can discharge once sodium is >128 Follow up in clinic in 1 week. Take ure na daily on sicharge for 3 to 4days Other work up negative Office number: [phone] Thank you for this interesting consult, will continue to follow.
[2022-11-11 06:32] LABS: Potassium 3.8 mEq/L (3.5-5.1)
[2022-11-11] MEDS: INSULIN -REGULAR HUMAN 50 UNIT/0.5 ML ML SQ SCH ×3 (07:30→16:30)
[2022-11-11] MEDS ORDERED: POTASSIUM 25 MEQ EFFERV TAB PO ONE (09:00)
[2022-11-11] MEDS: FUROSEMIDE 20 MG TABLET PO SCH ×2 (09:14→17:31)
[2022-11-11] MEDS: POTASSIUM CL SA 10 MEQ TAB PO SCH (09:14)
[2022-11-11] MEDS: UREA 15 GM POWDER PACKET PO SCH ×2 (09:15→20:28)
[2022-11-11] MEDS: ENOXAPARIN 40 MG/0.4 ML SQ SCH (17:31)
--- NOTE | 2022-11-12 04:58 | EKG ---
Test Date: 2022-11-09 Test Time: 01:13:53 Neonatologist: OREN MEASUREMENT RESULTS: Intervals: Rate: 73 NV: 162 QRSD: 96 QT: 404 QTc: 445 Ledbetter: P: 64 NV: 162 QRS: 54 T: 148 INTERPRETIVE STATEMENTS: Normal sinus rhythm Low voltage QRS ST & T wave abnormality, consider lateral ischemia Abnormal ECG Compared to ECG 11/08/2022 11:21:31 No significant changes Electronically Signed On 11-12-22 04:52:58 CDT by Armani Adrian
--- NOTE | 2022-11-12 04:59 | EKG ---
Test Date: 2022-11-08 Test Time: 11:21:31 Inspector Watch Train: ODILON MEASUREMENT RESULTS: Intervals: Rate: 84 VA: QRSD: 78 QT: 344 QTc: 406 Fyffe: P: VA: QRS: 26 T: 154 INTERPRETIVE STATEMENTS: Undetermined rhythm Low voltage QRS ST & T wave abnormality, consider inferolateral ischemia Abnormal ECG Compared to ECG 11/06/2022 10:05:19 Sinus rhythm no longer present Myocardial infarct finding no longer present ST (T wave) deviation still present Possible ischemia still present Electronically Signed On 11-12-22 04:53:00 CDT by Armani Adrian
[2022-11-12] MEDS: METOPROLOL TAR 25 MG TAB PO SCH ×2 (05:37→17:24)
[2022-11-12] MEDS: LEVOTHYROXINE SOD 0.075 MG TAB PO SCH (05:38)
[2022-11-12 05:55] LABS: Absolute Lymphocytes (CBC) 1.1 K/uL (0.7-4.9); Lymphocytes % 33.3 % (15.3-44.8); MCV 78.5 fL (80-100); MPV 7.5 fL (7.6-11.3); RBC Red Blood Cell Count 2.93 M/uL (3.86-4.86)
[2022-11-12 06:07] LABS: Potassium 3.5 mEq/L (3.5-5.1)
[2022-11-12 08:14] LABS: Platelet Estimate ADEQ; White Blood Cell Scan OK (OK)
[2022-11-12 08:15] LABS: Blood Morphology Comment NOT SEEN (NOT SEEN)
[2022-11-12] MEDS: UREA 15 GM POWDER PACKET PO SCH ×2 (08:57→21:00)
[2022-11-12] MEDS: FUROSEMIDE 20 MG TABLET PO SCH ×2 (08:58→17:23)
[2022-11-12] MEDS: POTASSIUM CL SA 10 MEQ TAB PO SCH (08:58)
[2022-11-12] MEDS ORDERED: POTASSIUM 25 MEQ EFFERV TAB PO ONE (09:00)
--- NOTE | 2022-11-12 11:11 | RAD REPORT ---
EXAM DESCRIPTION: Michael Single View11/12/2022 10:23 am CLINICAL HISTORY: Chest pain COMPARISON: November 07, 2022 FINDINGS: Bilateral pulmonary opacities have resolved. Small bilateral pleural effusions. Heart is mildly enlarged
[2022-11-12] MEDS ORDERED: Magnesium Sulfate 2gm IVPB 2 G/50 ML BAG IV ONE (11:58)
[2022-11-12] MEDS ORDERED: D50W 25 GM/50 ML SYRINGE IV PRN (12:14)
[2022-11-12] MEDS ORDERED: GLUCAGON 1 MG/VIAL IM PRN (12:14)
[2022-11-12] MEDS ORDERED: NA CHLORIDE 0.9% 250 ML ONE (14:56)
--- NOTE | 2022-11-12 15:31 | PN ---
Date of Progress Note: 11/12/2022 Ms. Lyons has been followed for anemia, hyponatremia, acute systolic congestive heart failure. Neph rology is helping in her care. Dr. Caraballo is admitting physician. She has improved. Her creatinin e is 1.04. Sodium is up to 129 from 118. Her last hemoglobin is 7.6. She is on Lasix. She is on m etoprolol, potassium, and Synthroid. She has hypertension. She has diabetes. Nephrology thinks alphonse t she may have cardiorenal syndrome, ejection fraction is 45%. I agree with her present regimen. I will sign off her case for now. When she goes home, I will make sure she see us in the office. I th ink she needs to have an outpatient stress test at her convenience. PRINCESS/EMI Voice ID: [id number] Report ID: [id number]
--- NOTE | 2022-11-12 15:31 | PN ---
I am following Mrs. Lyons for acute systolic congestive heart failure, ejection fraction of 40% to 4 5%, paroxysmal atrial fibrillation that has been well controlled on beta-blockers. Nephrology is fol lowing for the hyponatremia and elevated creatinine. Working up the possibility of hypothyroidism, p seudohyponatremia, serum osmolality is pending, possible decrease of solute intake. We will see what the workup shows. Sodium is improving. The patient is improving. Continue present regimen. Amada nue low-dose Lasix as needed. NB/MODL Voice ID: [id number] Report ID: [id number]
[2022-11-12] MEDS: INSULIN -REGULAR HUMAN 50 UNIT/0.5 ML ML SQ SCH ×2 (16:30→21:00)
[2022-11-12] MEDS: ENOXAPARIN 40 MG/0.4 ML SQ SCH (17:00)
[2022-11-12 21:31] LABS: Hematocrit 27.6 % (36.0-45.0)
[2022-11-13 05:42] LABS: Absolute Lymphocytes (CBC) 1.3 K/uL (0.7-4.9); Hematocrit 27.4 % (36.0-45.0); Lymphocytes % 29.9 % (15.3-44.8); MCV 77.6 fL (80-100); RBC Red Blood Cell Count 3.52 M/uL (3.86-4.86)
[2022-11-13] MEDS: METOPROLOL TAR 25 MG TAB PO SCH (06:00)
[2022-11-13 06:06] LABS: Magnesium 1.6 mg/dL (1.6-2.4); Potassium 3.8 mEq/L (3.5-5.1)
[2022-11-13] MEDS: LEVOTHYROXINE SOD 0.075 MG TAB PO SCH (06:32)
[2022-11-13] MEDS ORDERED: MAGNESIUM SULFATE 1 gm IVPB 1 GM/100 ML BAG IV ONE (07:00)
[2022-11-13] MEDS: INSULIN -REGULAR HUMAN 50 UNIT/0.5 ML ML SQ SCH ×2 (07:30→11:30)
[2022-11-13 08:57] VITALS: BP 123/68; TEMP 97.6
[2022-11-13] MEDS: UREA 15 GM POWDER PACKET PO SCH (09:00)
[2022-11-13] MEDS: POTASSIUM CL SA 10 MEQ TAB PO SCH (09:10)
[2022-11-13] MEDS: FUROSEMIDE 20 MG TABLET PO SCH (09:10)
--- NOTE | 2022-11-13 10:02 | PN ---
Date of Progress Note: 11/11/2022 The patient states she still has some shortness of breath; however, it is not as severe. Her sodium is now low at 125 and in fact if we can get her up to 130 perhaps she could be discharged in the a.m. Vital signs are basically stable. We will repeat chest x-ray in a.m. as well as blood work. HR/MODL Voice ID: [id number] Report ID: [id number]
[2022-11-13 11:56] VITALS: O2SAT 97
--- NOTE | 2022-11-13 17:06 | PN ---
Patient states she feels somewhat better today especially in her breathing. She has been up and abou t. Hemoglobin after 1 unit of blood is over 9. Her sodium however has remained the same at 129. We felt that she could be discharged. Continue on her beta stephanie. Lasix 20 mg daily, with a CHF epi sode and the renal medication, to improve her sodium, which the element winding machine tender felt she should be on fo r another 3 days. She will be followed up with me next week, Dr. Adrian in a couple of weeks for he r stress test, and perhaps an sock liner to try and siphon out the overall problems here. She i s also going to discuss her banding scenario as her diet seems to play somewhat of a part in this. H er vital signs are stable. She will continue on her diabetic protocol and her thyroid and she was di scharged in fair condition. Final Diagnoses: Hyponatremia, marked; hypokalemia, mild; hypomagnesemia; atrial fibrillation, parox ysmal, acute onset; congestive heart failure, acute onset; and insulin dependent diabetes mellitus, g ood control; hypothyroidism, good control. HR/MODL Voice ID: [id number] Report ID: [id number]
--- NOTE | 2022-11-13 21:27 | PN ---
Date of Progress Note: 11/13/2022 Ms. Lyons, I think, is planning to be discharged today by Dr. Caraballo. Him and I discussed her case . She obviously had cardiorenal issues, ejection fraction of 45%, new onset acute systolic congestiv e heart failure, hypertension, diabetes, hyponatremia. Last sodium, however, is 129. Last hemoglobi n was 7.6. Last creatinine is back down to normal to 1.04. Patient remains on Lasix, metoprolol, po tassium, and thyroid. I agree with her present regimen. I agree with Nephrology assessment and plan s. I agree with her being discharged. We will see her in the office sometime in the near future whe re I think she needs to have an outpatient Lexiscan. PRINCESS/EMI Voice ID: [id number] Report ID: [id number]
[2022-11-14] MEDS ORDERED: HOME MED 1 EA UNK (Dulaglutide [Trulicity] 1.5 MG/0.5 ML Pen.Injctr) SQ SCH (09:00)
== END 2022-11-13 14:31 | disposition home or self-care (01) | DRG 291 ==
LOC: ER 09:02 → ERHOLD 12:08 → 4TH 15:55 → OBSVTOIN 11-07 12:02
PROVIDERS: ADMIT Family Medicine; ATTEND Family Medicine
PROC: 30233N1 Transfusion of Nonautologous Red Blood Cells into Peripheral Vein, Percutaneous Approach (ICD-10-PCS; principal; 2022-11-12)
DX: I11.0 Hypertensive heart disease with heart failure (principal); I50.21 Acute systolic (congestive) heart failure; E87.1 Hypo-osmolality and hyponatremia; N17.9 Acute kidney failure, unspecified; E11.40 Type 2 diabetes mellitus with diabetic neuropathy, unspecified; E03.9 Hypothyroidism, unspecified; I48.0 Paroxysmal atrial fibrillation; E87.6 Hypokalemia; E83.42 Hypomagnesemia; I34.0 Nonrheumatic mitral (valve) insufficiency; D64.9 Anemia, unspecified; Z79.4 Long term (current) use of insulin; Z88.5 Allergy status to narcotic agent; Z90.49 Acquired absence of other specified parts of digestive tract; Z91.018 Allergy to other foods; Z89.429 Acquired absence of other toe(s), unspecified side; Z79.890 Hormone replacement therapy; Z90.710 Acquired absence of both cervix and uterus
CPT/HCPCS: 36415; 36430; 71045; 74177; 76857; 80048; 80061; 80076; 81001; 82947; 83036; 83540; 83735; 83880; 83930; 84155; 84300; 84436; 84439; 84443; 84466; 84480; 84484; 84550; 85014; 85018; 85025; 86850; 86900; 86901; 86920; 93005; 93306; 96374; 99284; C9113; G0378; J1650; J1940; J2405; J3475; J7030; J7050; J7131; P9016; Q9967

== ENCOUNTER 2022-12-03 07:48 | Inpatient (IN) | payer OTHER ==
--- OUTSIDE RECORDS SUMMARY | 2022-12-03 07:53 | XMS REPORT | Continuity of Care Document ---
:1950 Author Organization [facility] t Address [address] [place] [address] Care Team Providers Name Role Phone Leroy Lozada MD Primary Care Physician [phone] Warren Schumacher MD Attending Clinician Doctor Unassigned, [place] Attending Clinician Unavailable Leroy Lozada MD Attending Clinician Provider, [facility] Attending Clinician Unavailable Marcy Toribio RN Attending Clinician Unavailable Only, Emilio Khalil Test Attending Clinician Unavailable Zandra Machuca Attending Clinician ZANDRA PAN Attending Clinician Unavailable Anna Allison RN Attending Clinician Unavailable Provider, [facility] Attending Clinician Unavailable LEROY LOZADA Attending Clinician Unavailable Lab, [facility] I Attending Clinician Unavailable Omaghomi EDUCATIONAL SPEECH LANGUAGE CLINICIAN, Omayemi Attending Clinician Shonda Peñaloza Attending Clinician Jani EDUCATIONAL SPEECH LANGUAGE CLINICIAN, Cassandra Attending Clinician CASSANDRA HANNAH Attending Clinician [...] nivers ia ia 2 ity of 00:00: [place] [facility] Hyperchole Hyperchole Disease Active 2019-07 U genoveva sterolemia sterolemia 2 it y of 00:00: [place] [facility] Elevated Elevated Disease Active 2019-07 Unive rs TSH TSH 2 ity of 00:00: [place] [facility] H/O H/O Disease Active 2018-07 Univers thyroidect thyroidect 0- it y of marcelle marcelle 00:00: [place] [facility] Hypomagnes Hypomagnes Disease Active U dennisers emia emia 9 ity of 00:00: [place] [facility] LAP-BAND LAP-BAND Disease Active Unive rs surgery surgery 03-15 ity of status status 00:00: [place] [facility] Fatty Fatty Disease Active Univers liver liver 03-03 ity of 00:00: [place] [facility] H/O H/O Disease Active Univers parathyroi parathyroi 15 it y of dectomy dectomy 00:00: [place] [facility] Anemia, Anemia, Disease Active Overview: Univ ers unspecifie unspecifie 03-03 Formattin ity of d d 00:00: g of this [place] 00 note Medical might be Branch different from the original. s/p work-up with Hematolog y, malignanc y ruled-out per patient Rheumatoid Rheumatoid Disease Active U dennisers arthritis arthritis ity of [facility] Diabetes Diabetes Disease Active Unive rs ity of [facility] Allergies, Adverse Reactions, Alerts Allergy Allergy Status Severity Reaction(s) Onset Inactive Treating Comm ents Source Name Type Date Date Clinician Codeine Propensi Active Rash Univers ty to 8-24 ity of adverse 00:00: [place] reaction 00 Medical Branch [place] Propensi Active Rash Univer s e ty to 8 ity of adverse 00:00: [place] reaction 00 [facility] Branch CODEINE DRUG Active Rash Univers INGREDI 8-24 ity of 00:00: [place] 00 Medical Branch PINEAPPL DRUG Active Rash 2016-0 Univers E INGREDI 8-24 ity of 00:00: [address] Social History Social Habit Start Date Stop Date Quantity Comments Source Exposure to Not sure University SARS-CoV-2 [place] Medical (event) Branch Alcohol intake 2021-01-20 2021-01-20 Current University of 00:00:00 00:00:00 non-drinker of [facility] alcohol (finding) Teller Tobacco use and 2018-11-21 2018-11-21 Smokeless tobacco Un iversity of exposure 00:00:00 00:00:00 non-user [facility] Sex Ass[birth year] Universit y of 00:00:00 00:00:00 [facility] Smoking Status Start Date Stop Date Source Never smoked tobacco [facility] Medications Ordered Filled Start Stop Current Ordering Indication Dosage Frequency Signature Comments Components Source Medication Medication Date Date Medication? Clinician (SIG) Name Name dulaglutide Yes [id number] 1.5mg INJECT 1.5 Univers (TRULICITY) 8-30 MG UNDER ity of 1.5 mg/0.5 00:00: THE SKIN Rah as mL PnIj WEEKLY Medical Branch dulaglutide Yes [id number] 1.5mg INJECT 1.5 Univers (TRULICITY) 8-30 MG UNDER ity of 1.5 mg/0.5 00:00: THE SKIN Rah as mL PnIj WEEKLY Medical Branch dulaglutide Yes [id number] 1.5mg INJECT 1.5 Univers (TRULICITY) 8-30 MG UNDER ity of 1.5 mg/0.5 00:00: THE SKIN Rah as mL PnIj WEEKLY Medical Branch dulaglutide Yes [id number] 1.5mg INJECT 1.5 Univers (TRULICITY) 8-30 MG UNDER ity of 1.5 mg/0.5 00:00: THE SKIN Rah as mL PnIj WEEKLY Medical Branch TRULICITY Yes [id number] 1.5mg INJECT 1.5 Univers 1.5 mg/0.5 7-20 MG UNDER ity o f mL PnIj 00:00: THE SKIN [place] 00 WEEKLY. Medical Branch TRULICITY 2021- No [id number] 1.5mg INJECT 1.5 Univers 1.5 mg/0.5 7-20 08-30 MG UNDER ity of mL PnIj 00:00: 00:00 THE SKIN [place] 00 :00 WEEKLY. Medical Branch rosuvastati Yes [id number] 5mg Take 1 Univers n 5 mg 7-04 tablet by ity of tablet 00:00: mouth [place] 00 daily. Medical Branch rosuvastati Yes [id number] 5mg Take 1 Univers n 5 mg 7-04 tablet by ity of tablet 00:00: mouth [place] 00 daily. Medical Branch rosuvastati Yes [id number] 5mg Take 1 Univers n 5 mg 7-04 tablet by ity of tablet 00:00: mouth [place] 00 daily. Medical Branch rosuvastati Yes [id number] 5mg Take 1 Univers n 5 mg 7-04 tablet by ity of tablet 00:00: mouth [place] 00 daily. Medical Branch rosuvastati Yes [id number] 5mg Take 1 Univers n 5 mg 7-04 tablet by ity of tablet 00:00: mouth [place] 00 daily. Medical Branch rosuvastati Yes [id number] 5mg Take 1 Univers n 5 mg 7-04 tablet by ity of tablet 00:00: mouth [place] 00 daily. Medical Branch rosuvastati Yes [id number] 5mg Take 1 Univers n 5 mg 7-04 tablet by ity of tablet 00:00: mouth [place] 00 daily. Medical Branch rosuvastati Yes [id number] 5mg Take 1 Univers n 5 mg 7-04 tablet by ity of tablet 00:00: mouth [place] 00 daily. Medical Branch rosuvastati Yes [id number] 5mg Take 1 Univers n 5 mg 7-04 tablet by ity of tablet 00:00: mouth [place] 00 daily. Medical Branch rosuvastati Yes [id number] 5mg Take 1 Univers n 5 mg 7-04 tablet by ity of tablet 00:00: mouth [place] 00 daily. [facility] rosuvastati Yes [id number] 5mg Take 1 Univers n 5 mg 7-04 tablet by ity of tablet 00:00: mouth [place] 00 daily. [facility] rosuvastati Yes [id number] 5mg Take 1 Univers n 5 mg 7-04 tablet by ity of tablet 00:00: mouth [place] 00 daily. Medical Branch rosuvastati 2020-0 Yes [id number] 5mg Take 1 Univers n 5 mg 7-04 tablet by ity of tablet 00:00: mouth [place] 00 daily. Medical Branch rosuvastati 2020-0 Yes [id number] 5mg Take 1 Univers n 5 mg 7-04 tablet by ity of tablet 00:00: mouth [place] 00 daily. Medical Branch rosuvastati 2020-0 Yes [id number] 5mg Take 1 Univers n 5 mg 7-04 tablet by ity of tablet 00:00: mouth [place] 00 daily. Medical Branch rosuvastati 2020-0 Yes [id number] 5mg Take 1 Univers n 5 mg 7-04 tablet by ity of tablet 00:00: mouth [place] 00 daily. Medical Branch rosuvastati 2020-0 Yes [id number] 5mg Take 1 Univers n 5 mg 7-04 tablet by ity of tablet 00:00: mouth [place] 00 daily. Medical Branch ibuprofen 0 Yes 200mg Take 200 Uni vers (ADVIL) 200 6-30 mg by ity of mg tablet 16:04: mouth [place] 48 every 6 Medical (six) Branch hours as needed. loperamide 2020-0 Yes Take by [facility] ers HCl 6-30 mouth. ity of (IMODIUM [...] by ity of mg tablet 16:04: mouth [place] 48 every 6 Medical (six) Branch hours [...] by ity of mg tablet 16:04: mouth [place] 48 every 6 Medical (six) Branch hours as needed. loperamide 2021-0 Yes Take by Univ ers HCl 6-30 mouth. ity of (IMODIUM 16:04: [place] ORAL) 48 Medical Branch ibuprofen 2021-0 Yes 200mg Take 200 Uni vers (ADVIL) 200 6-30 mg by ity of mg tablet 16:04: mouth [place] 48 every 6 Medical (six) Branch hours as needed. loperamide 2021-0 Yes Take by Univ ers HCl 6-30 mouth. ity of (IMODIUM 16:04: [place] ORAL) 48 Medical Branch ibuprofen 2021-0 Yes 200mg Take 200 Uni vers (ADVIL) 200 6-30 mg by ity of mg tablet 16:04: mouth [place] 48 every 6 Medical (six) Branch hours as needed. loperamide 2021-0 Yes Take by Univ ers HCl 6-30 mouth. ity of (IMODIUM 16:04: [place] ORAL) 48 Medical Branch ibuprofen 2021-0 Yes 200mg Take 200 Uni vers (ADVIL) 200 6-30 mg by ity of mg tablet 16:04: mouth [place] 48 every 6 Medical (six) Branch hours as needed. loperamide 2021-0 Yes Take by Univ ers HCl 6-30 mouth. ity of (IMODIUM 16:04: [place] ORAL) 48 Medical Branch ibuprofen 2021-0 Yes 200mg Take 200 Uni vers (ADVIL) 200 6-30 mg by ity of mg tablet 16:04: mouth [place] 48 every 6 Medical (six) Branch hours as needed. loperamide 2021-0 Yes Take by Univ ers HCl 6-30 mouth. ity of (IMODIUM 16:04: [place] ORAL) 48 Medical Branch ibuprofen 2021-0 Yes 200mg Take 200 Uni vers (ADVIL) 200 6-30 mg by ity of mg tablet 16:04: mouth [place] 48 every 6 Medical (six) Branch hours as needed. loperamide 2021-0 Yes Take by Univ ers HCl 6-30 mouth. ity of (IMODIUM 16:04: [place] ORAL) 48 Medical Branch ibuprofen 2021-0 Yes 200mg Take 200 Uni vers (ADVIL) 200 6-30 mg by ity of mg tablet 16:04: mouth [place] 48 every 6 Medical (six) Branch hours as needed. loperamide 2021-0 Yes Take by Univ ers HCl 6-30 mouth. ity of (IMODIUM 16:04: [place] ORAL) 48 Medical Branch ibuprofen 2021-0 Yes 200mg Take 200 Uni vers (ADVIL) 200 6-30 mg by ity of mg tablet 16:04: mouth [place] 48 every 6 Medical (six) Branch hours [...] [place] ORAL) 48 Medical Branch dulaglutide Yes [id number] 1.5mg inject 1.5 Univers (TRULICITY) 6-30 mg under ity of 1.5 mg/0.5 00:00: the skin Rah as mL PnIj 00 weekly. Medical Branch dulaglutide Yes [id number] 1.5mg inject 1.5 Univers (TRULICITY) 6-30 mg under ity of 1.5 mg/0.5 00:00: the skin [place] as mL PnIj 00 weekly. Medical Branch dulaglutide Yes [id number] 1.5mg inject 1.5 Univers (TRULICITY) 6-30 mg under ity of 1.5 mg/0.5 00:00: the skin [place] as mL PnIj 00 weekly. Medical Branch dulaglutide Yes [id number] 1.5mg inject 1.5 Univers (TRULICITY) 6-30 mg under ity of 1.5 mg/0.5 00:00: the skin [place] as mL PnIj 00 weekly. Medical Branch dulaglutide Yes [id number] 1.5mg inject 1.5 Univers (TRULICITY) 6-30 mg under ity of 1.5 mg/0.5 00:00: the skin [place] as mL PnIj 00 weekly. Medical Branch dulaglutide Yes [id number] 1.5mg inject 1.5 Univers (TRULICITY) 6-30 mg under ity of 1.5 mg/0.5 00:00: the skin [place] as mL PnIj 00 weekly. Medical Branch dulaglutide Yes [id number] 1.5mg inject 1.5 Univers (TRULICITY) 6-30 mg under ity of 1.5 mg/0.5 00:00: the skin [place] as mL PnIj 00 weekly. Medical Branch dulaglutide Yes [id number] 1.5mg inject 1.5 Univers (TRULICITY) 6-30 mg under ity of 1.5 mg/0.5 00:00: the skin [place] as mL PnIj 00 weekly. Medical Branch dulaglutide Yes [id number] 1.5mg inject 1.5 Univers (TRULICITY) 6-30 mg under ity of 1.5 mg/0.5 00:00: the skin [place] as mL PnIj 00 weekly. Medical Branch dulaglutide Yes [id number] 1.5mg inject 1.5 Univers (TRULICITY) 6-30 mg under ity of 1.5 mg/0.5 00:00: the skin [place] as mL PnIj 00 weekly. Medical Branch dulaglutide Yes [id number] 1.5mg inject 1.5 Univers (TRULICITY) 6-30 mg under ity of 1.5 mg/0.5 00:00: the skin [place] as mL PnIj 00 weekly. Medical Branch dulaglutide Yes [id number] 1.5mg inject 1.5 Univers (TRULICITY) 6-30 mg under ity of 1.5 mg/0.5 00:00: the skin [place] as mL PnIj 00 weekly. Medical Branch dulaglutide 202- No [id number] 1.5mg inject 1.5 Univers (TRULICITY) 6-30 07-20 mg under ity of 1.5 mg/0.5 00:00: 00:00 [place] mL PnIj 00 :00 weekly. Medical Branch Blood-Gluco 2020- Yes [id number] Check Univers se Meter 2-12 glucose ity of Kit 00:00: once daily [place] 00 before Medical breakfast; Branch ICD-10 code E11.9 blood sugar 2020- Yes [id number] Check Univers diagnostic 2-12 glucose ity of (BLOOD 00:00: once daily [place] GLUCOSE 00 before Medical TEST) strip breakfast; Br anch ICD-10 code E11.9 Lancets 2020- Yes [id number] Check Univ ers Misc 2-12 glucose ity of 00:00: once daily [place] 00 before Medical breakfast; Branch ICD-10 code E11.9 Blood-Gluco 2020- Yes [id number] Check Univers se Meter 2-12 glucose ity of Kit 00:00: once daily [place] 00 before Medical breakfast; Branch ICD-10 code E11.9 blood sugar 2020- Yes [id number] Check Univers diagnostic 2-12 glucose ity of (BLOOD 00:00: once daily [place] GLUCOSE 00 before Medical TEST) strip breakfast; Br anch ICD-10 code E11.9 Lancets 2020-1 Yes [id number] Check Univ ers Misc 2-12 glucose ity of 00:00: once daily [place] 00 before Medical breakfast; Branch ICD-10 code E11.9 Blood-Gluco 2020-1 Yes [id number] Check Univers se Meter 2-12 glucose ity of Kit 00:00: once daily [place] 00 before Medical breakfast; Branch ICD-10 code E11.9 blood sugar 2020-1 Yes [id number] Check Univers diagnostic 2-12 glucose ity of (BLOOD 00:00: once daily [place] GLUCOSE 00 before Medical TEST) strip breakfast; Br anch ICD-10 code E11.9 Lancets 2020-1 Yes [id number] Check Univ ers Misc 2-12 glucose ity of 00:00: once daily [place] 00 before Medical breakfast; Branch ICD-10 code E11.9 Blood-Gluco 2020-1 Yes [id number] Check Univers se Meter 2-12 glucose ity of Kit 00:00: once daily [place] 00 before Medical breakfast; Branch ICD-10 code E11.9 blood sugar 2020-1 Yes [id number] Check Univers diagnostic 2-12 glucose ity of (BLOOD 00:00: once daily [place] GLUCOSE 00 before Medical TEST) strip breakfast; Br anch ICD-10 code E11.9 Lancets 2020-1 Yes [id number] Check Univ ers Misc 2-12 glucose ity of 00:00: once daily [place] 00 before Medical breakfast; Branch ICD-10 code E11.9 Blood-Gluco 2020-1 Yes [id number] Check Univers se Meter 2-12 glucose ity of Kit 00:00: once daily [place] 00 before Medical breakfast; Branch ICD-10 code E11.9 blood sugar 2020-1 Yes [id number] Check Univers diagnostic 2-12 glucose ity of (BLOOD 00:00: once daily [place] GLUCOSE 00 before Medical TEST) strip breakfast; Br anch ICD-10 code E11.9 Lancets 2020-1 Yes [id number] Check Univ ers Misc 2-12 glucose ity of 00:00: once daily [place] 00 before Medical breakfast; Branch ICD-10 code E11.9 Blood-Gluco 2020-1 Yes [id number] Check Univers se Meter 2-12 glucose ity of Kit 00:00: once daily [place] 00 before Medical breakfast; Branch ICD-10 code E11.9 blood sugar 2020-1 Yes [id number] Check Univers diagnostic 2-12 glucose ity of (BLOOD 00:00: once daily [place] GLUCOSE 00 before Medical TEST) strip breakfast; Br anch ICD-10 code E11.9 Lancets 2020-1 Yes [id number] Check Univ ers Misc 2-12 glucose ity of 00:00: once daily [place] 00 before Medical breakfast; Branch ICD-10 code E11.9 Blood-Gluco 2020-1 Yes [id number] Check Univers se Meter 2-12 glucose ity of Kit 00:00: once daily [place] 00 before Medical breakfast; Branch ICD-10 code E11.9 blood sugar 2020-1 Yes [id number] Check Univers diagnostic 2-12 glucose ity of (BLOOD 00:00: once daily [place] GLUCOSE 00 before Medical TEST) strip breakfast; Br anch ICD-10 code E11.9 Lancets 2020-1 Yes [id number] Check Univ ers Misc 2-12 glucose ity of 00:00: once daily [place] 00 before Medical breakfast; Branch ICD-10 code E11.9 Blood-Gluco 2020-1 Yes [id number] Check Univers se Meter 2-12 glucose ity of Kit 00:00: once daily [place] 00 before Medical breakfast; Branch ICD-10 code E11.9 blood sugar 2020-1 Yes [id number] Check Univers diagnostic 2-12 glucose ity of (BLOOD 00:00: once daily [place] GLUCOSE 00 before Medical TEST) strip breakfast; Br anch ICD-10 code E11.9 Lancets 2020-1 Yes [id number] Check Univ ers Misc 2-12 glucose ity of 00:00: once daily [place] 00 before Medical breakfast; Branch ICD-10 code E11.9 Blood-Gluco 2020-1 Yes [id number] Check Univers se Meter 2-12 glucose ity of Kit 00:00: once daily [place] 00 before Medical breakfast; Branch ICD-10 code E11.9 blood sugar 2020-1 Yes [id number] Check Univers diagnostic 2-12 glucose ity of (BLOOD 00:00: once daily [place] GLUCOSE 00 before Medical TEST) strip breakfast; Br anch ICD-10 code E11.9 Lancets 2020-1 Yes [id number] Check Univ ers Misc 2-12 glucose ity of 00:00: once daily [place] 00 before Medical breakfast; Branch ICD-10 code E11.9 Blood-Gluco 2020-1 Yes [id number] Check Univers se Meter 2-12 glucose ity of Kit 00:00: once daily [place] 00 before Medical breakfast; Branch ICD-10 code E11.9 blood sugar 2020-1 Yes [id number] Check Univers diagnostic 2-12 glucose ity of (BLOOD 00:00: once daily [place] GLUCOSE 00 before Medical TEST) strip breakfast; Br anch ICD-10 code E11.9 Lancets 2020-1 Yes [id number] Check Univ ers Misc 2-12 glucose ity of 00:00: once daily [place] 00 before Medical breakfast; Branch ICD-10 code E11.9 Blood-Gluco 2020-1 Yes [id number] Check Univers se Meter 2-12 glucose ity of Kit 00:00: once daily [place] 00 before Medical breakfast; Branch ICD-10 code E11.9 blood sugar 2020-1 Yes [id number] Check Univers diagnostic 2-12 glucose ity of (BLOOD 00:00: once daily [place] GLUCOSE 00 before Medical TEST) strip breakfast; Br anch ICD-10 code E11.9 Lancets 2020-1 Yes [id number] Check Univ ers Misc 2-12 glucose ity of 00:00: once daily [place] 00 before Medical breakfast; Branch ICD-10 code E11.9 Blood-Gluco 2020-1 Yes [id number] Check Univers se Meter 2-12 glucose ity of Kit 00:00: once daily [place] 00 before Medical breakfast; Branch ICD-10 code E11.9 blood sugar 2020-1 Yes [id number] Check Univers diagnostic 2-12 glucose ity of (BLOOD 00:00: once daily [place] GLUCOSE 00 before Medical TEST) strip breakfast; Br anch ICD-10 code E11.9 Lancets 2020-1 Yes [id number] Check Univ ers Misc 2-12 glucose ity of 00:00: once daily [place] 00 before Medical breakfast; Branch ICD-10 code E11.9 Blood-Gluco 2020-1 Yes [id number] Check Univers se Meter 2-12 glucose ity of Kit 00:00: once daily [place] 00 before Medical breakfast; Branch ICD-10 code E11.9 blood sugar 2020-1 Yes [id number] Check Univers diagnostic 2-12 glucose ity of (BLOOD 00:00: once daily [place] GLUCOSE 00 before Medical TEST) strip breakfast; Br anch ICD-10 code E11.9 Lancets 2020-1 Yes [id number] Check Univ ers Misc 2-12 glucose ity of 00:00: once daily [place] 00 before Medical breakfast; Branch ICD-10 code E11.9 Blood-Gluco 2020-1 Yes [id number] Check Univers se Meter 2-12 glucose ity of Kit 00:00: once daily [place] 00 before Medical breakfast; Branch ICD-10 code E11.9 blood sugar 2020-1 Yes [id number] Check Univers diagnostic 2-12 glucose ity of (BLOOD 00:00: once daily [place] GLUCOSE 00 before Medical TEST) strip breakfast; Br anch ICD-10 code E11.9 Lancets 2020-1 Yes [id number] Check Univ ers Misc 2-12 glucose ity of 00:00: once daily [place] 00 before Medical breakfast; Branch ICD-10 code E11.9 Blood-Gluco 2020-1 Yes [id number] Check Univers se Meter 2-12 glucose ity of Kit 00:00: once daily [place] 00 before Medical breakfast; Branch ICD-10 code E11.9 blood sugar 2020-1 Yes [id number] Check Univers diagnostic 2-12 glucose ity of (BLOOD 00:00: once daily [place] GLUCOSE 00 before Medical TEST) strip breakfast; Br anch ICD-10 code E11.9 Lancets 2020-1 Yes [id number] Check Univ ers Misc 2-12 glucose ity of 00:00: once daily [place] 00 before Medical breakfast; Branch ICD-10 code E11.9 Blood-Gluco 2020-1 Yes [id number] Check Univers se Meter 2-12 glucose ity of Kit 00:00: once daily [place] 00 before Medical breakfast; Branch ICD-10 code E11.9 blood sugar 2020-1 Yes [id number] Check Univers diagnostic 2-12 glucose ity of (BLOOD 00:00: once daily [place] GLUCOSE 00 before Medical TEST) strip breakfast; Br anch ICD-10 code E11.9 Lancets 2020-1 Yes [id number] Check Univ ers Misc 2-12 glucose ity of 00:00: once daily [place] 00 before Medical breakfast; Branch ICD-10 code E11.9 Blood-Gluco 2020-1 Yes [id number] Check Univers se Meter 2-12 glucose ity of Kit 00:00: once daily [place] 00 before Medical breakfast; Branch ICD-10 code E11.9 blood sugar 2020-1 Yes [id number] Check Univers diagnostic 2-12 glucose ity of (BLOOD 00:00: once daily [place] GLUCOSE 00 before Medical TEST) strip breakfast; Br anch ICD-10 code E11.9 Lancets 2020-1 Yes [id number] Check Univ ers Misc 2-12 glucose ity of 00:00: once daily [place] 00 before Medical breakfast; Branch ICD-10 code E11.9 cyanocobala 2020-[address] Unive rs min, 2-27 under the ity of vitamin 15:43: tongue. [place] B-, 45 Medical (VITAMIN Branch B-12 SL) Cholecalcif 2020-0 Yes Take by Uni vers [place], 2-27 mouth ity of Vitamin D3, 15:43: daily. [place] (VITAMIN 45 Take with Medica l D3) 1,000 a meal Branch unit Chew cyanocobala 2020-[address] Unive rs min, 2-27 under the ity of vitamin 15:43: tongue. [place] B- 45 Medical (VITAMIN Branch B-12 SL) Cholecalcif 2020-0 Yes Take by Uni vers ed[place], 2-27 mouth ity of Vitamin D3, 15:43: daily. [place] (VITAMIN 45 Take with Medica l D3) 1,000 a meal Branch unit Chew cyanocobala 2020-[address] Unive rs min, 2-27 under the ity of vitamin 15:43: tongue. [place] B- 45 Medical (VITAMIN Branch B-12 SL) Cholecalcif 2020-0 Yes Take by Uni vers edwrad, 2-27 mouth ity of Vitamin D3, 15:43: daily. [place] (VITAMIN 45 Take with Medica l D3) 1,000 a meal Branch unit Chew cyanocobala 2020-[address] Unive rs min, 2-27 under the ity of vitamin 15:43: tongue. [place] B-, 45 Medical (VITAMIN Branch B-12 SL) Cholecalcif 2020-0 Yes Take by Uni vers [place], 2-27 mouth ity of Vitamin D3, 15:43: daily. [place] (VITAMIN 45 Take with Medica l D3) 1,000 a meal Branch unit Chew cyanocobala 2020-[address] Unive rs min, 2-27 under the ity of vitamin 15:43: tongue. [place] B-, 45 Medical (VITAMIN Branch B-12 SL) [...] under the ity of vitamin 15:43: tongue. -, 45 Medical (VITAMIN Branch B-12 SL) Cholecalcif [...] mouth ity of Vitamin D3, 15:43: daily. [place] (VITAMIN 45 Take with Medica l [...] Immunizations Ordered Filled Immunization Date Status Comments [facility] Immunization Name Name SARS-COV-2 COVID-19 2020-10-18 Completed [...] Unive rsity of MODERNA 12+ YRS 00:00:00 [place] Med ical VACCINE Branch SARS-COV-2 COVID-19 2020-09-17 Completed Unive rsity of MODERNA 12+ YRS 00:00:00 [place] Med ical VACCINE Branch SARS-COV-2 COVID-19 2020-09-17 Completed Unive rsity of MODERNA 12+ YRS 00:00:00 [facility] ical VACCINE Branch Procedures Procedure Date / Time Performing Clinician Source Performed AUTHORIZATION FOR 2022-05-16 05:01:00 [facility]igned, [facility] Medical Branch ASSIGNMENT OF BENEFITS 2021-07-26 16:18:24 Doctor Unassigned, No [facility] Medical Branch CLINIC RECORD / SMR 2021-06-06 06:01:00 [facility] Encounters Start End Encounter Admission Attending Care Care Encounter Source Date/Time Date/Time Type Type Clinicians Facility Department ID 2022-07-29 2022-07-29 [facility] [id number] Univers 00:00:00 00:00:00 Warren CAREY [id number] i ty of [facility] [id number] [id number] Nv dicor NAL [address] [place] [address] 2022-07-19 2022-07-19 [facility] 1.2.840.114 [id number] Univers 00:00:00 00:00:00 Warren CAREY [id number] i ty of [place] [id number] [id number] [facility] NAL 0[address] [facility] 2022-05-16 2022-05-16 Orders Doctor PARKER [id number] Univers 00:00:00 00:00:00 Only Unassigned, SOFYA 350.1.13.10 ity of [facility] [id number] Rah as [phone] [place] [address] Branch 2022-03-18 2022-03-18 [facility] [id number] Univers 00:00:00 00:00:00 Warren CAREY [id number] i ty of [facility] [id number] PROFESS[place] [phone] [address] 2022-02-04 2022-02-04 [facility] [id number] Univers 00:00:00 00:00:00 Leroy CAREY [id number] ity of [facility] [id number] PROFESS[place] [phone] [address] 2021-07-31 2021-07-31 Telephone Provider, [facility] [id number] Univers 00:00:00 00:00:00 Ang Db HEALTH [id number] it y of Urgent [facility] [place] [id number] [place] MARK?BLEA [id number] [address] OFFICE [facility] 2021-07-27 2021-07-27 Letter ELENA Toribio [id number] Univers 00:00:00 00:00:00 (Out) Marcy COWART [id number] it y of [facility] [id number] Rah as [phone] [address] 2021-07-26 2021-07-26 Laboratory Only, Ang Db Test [facility] 1.2.8 40.114 [id number] Univers 10:30:00 10:45:00 Only Zandra Pan HEALTH 350.1.13.10 ity of [place] 4.2.7.2.686 Rah as MARK?BLEA [phone] [address] OFFICE [facility] 2021-07-26 2021-07-26 Outpatient R VIVIANE [facility] [id number] Univers 10:30:00 10:30:00 ZANDRA mak o f [facility] 2021-07-26 2021-07-26 Letter Doctor PARKER 1.2.840.114 [id number] Univers 00:00:00 00:00:00 (Out) Unassigned, SOFYA 350.1.13.10 ity of [place] [facility] 4.2.7.2.[phone] [facility] [address] 2021-07-26 2021-07-26 Letter Doctor ELENA 1.2.840.114 [id number] Univers 00:00:00 00:00:00 (Out) Unassigned, SOFYA 350.1.13.10 ity of [place] [facility] 4.2.7.2.686 Rah as [phone] [address] 2021-07-26 2021-07-26 Orders Doctor ELENA 1.2.840.114 [id number] Univers 00:00:00 00:00:00 Only Unassigned, SOFYA 350.1.13.10 ity of [place] [facility] 4.2.7.2.686 Rah as [phone] [address] 2021-06-06 2021-06-06 Orders Doctor ELENA 1.2.840.114 [id number] Univers 00:00:00 00:00:00 Only Unassigned, SOFYA 350.1.13.10 ity of [place] [facility] 4.2.7.2.[phone] [facility] [address] 2021-04-24 2021-04-24 Telephone ELENA Allison 1.2.125.503 [id number] Univers 00:00:00 00:00:00 Aneatrice SOFYA 350.1.13.10 ity of HOSPITAL 4.2.7.2.[phone] [facility] [address] 2021-04-24 2021-04-24 Letter Doctor PARKER 1.2.840.114 [id number] Univers 00:00:00 00:00:00 (Out) Unassigned, SOFYA 350.1.13.10 ity of [place] [facility] 4.2.7.2.[phone] [facility] [address] 2021-04-24 2021-04-24 Letter Provider, [facility] 1.2.490.163 [id number] Univers 00:00:00 00:00:00 (Out) [facility] 350.1.13.10 it y of [facility] [place] 4.2.7.2.686 [place] Mark?Blea [phone] [facility] [address] [facility] Office Building 2021-04-24 2021-04-24 Telephone Provider, [facility] 1.2.840.114 [id number] Univers 00:00:00 00:00:00 Ang Urgent Health 350.1.13.10 ity of Care [place] 4.2.7.2.686 Rah as Mark?Blea [phone] [facility] [address] [facility] Office Building 2021-04-22 2021-04-22 Laboratory Only, Ang Db Test [facility] 1.2.8 40.114 [id number] Univers 13:27:04 13:42:04 Only Viviane, [facility] 350.1.13.10 ity of [place] 4.2.7.2.686 Rah as Mark?Blea [phone] [address] Office [facility] 2021-04-22 2021-04-22 Outpatient R VIVIANE [facility] [id number] Univers 13:15:00 13:15:00 ZANDRA ity o f [facility] 2021-02-12 2021-02-12 Orders Doctor ELENA 1.2.840.114 [id number] Univers 00:00:00 00:00:00 Only Unassigned, SOFYA 350.1.13.10 ity of [place] [facility] 4.2.7.2.686 Rah as [phone] [address] 2021-01-16 2021-01-16 Office Amadou [facility] 1.2.840.114 [id number] Univers 15:12:18 16:29:55 Visit Wondiful A Health 350.1.13.10 ity of [place] 4.2.7.2.686 Rah as Professio [phone] [address] Office Building One 2021-01-16 2021-01-16 Outpatient R AMADOU [facility] [id number] Univers 15:15:00 15:15:00 WONDIFUL ity o f [facility] 2021-01-14 2021-01-14 Telephone Amadou [facility] 1.2.840.114 [id number] Univers 00:00:00 00:00:00 Wondiful A Health 350.1.13.10 ity of [place] 4.2.7.2.686 Rah as Professio [phone] Nv dical nal [address] [place] [address] One 2021-01-09 2021-01-09 Refill Amadou [facility] 1.2.840.114 [id number] Univers 00:00:00 00:00:00 Wondiful A Health 350.1.13.10 ity of [place] 4.2.7.2.686 Rah as Professio [phone] [facility] [address] [place] [address] One 2020-08-15 2020-08-15 [place] Amadou [facility] 1.2.840.114 [id number] Univers 00:00:00 00:00:00 Wondiful A Health 350.1.13.10 ity of [place] 4.2.7.2.686 Rah as Professio [phone] [facility] [address] [place] [address] One 2020-07-20 2020-07-20 Refill Amadou [facility] 1.2.840.114 [id number] Univers 00:00:00 00:00:00 W[facility]iful [facility] 350.1.13.10 ity of [place] 4.2.7.2.686 Rah as Professio [phone] Nv dical nal [address] [place] [address] One 2020-07-15 2020-07-15 [facility] Amadou [facility] 1.2.840.114 [id number] Univers 00:00:00 00:00:00 Management W[facility]iful [facility] 350.1.13.10 ity of [place] 4.2.7.2.686 Rah as Professio [phone] Nv dical nal [address] [place] [address] One 2020-07-06 2020-07-06 Panel Monitor Lab, Pb Fam Pob I [facility] 1.2. 840.114 [id number] Univers 08:48:15 09:08:15 Visit AmadouMark Anthonyful [facility] Health 350.1.13.1 0 ity of [place] 4.2.7.2.686 Rah as Professio [phone] [address] 2020-07-06 2020-07-06 Outpatient R [facility] [id number] Univers 09:00:00 09:00:00 ity of [facility] 2020-06-28 2020-06-28 [facility]phone [facility] 1.2.840.114 [id number] Univers 00:00:00 00:00:00 Wondiful A [place] 350.1.13.10 ity of [place]7.2.[place] Profess[place] [phone] [address] 2020-05-01 2020-05-01 Telephone [facility] 1.2.840.114 [id number] Univers 00:00:00 00:00:00 [facility] 350.1.13.10 ity of [place] 4.2.7.2.686 Rah as Professio [phone] [address] 2020-05-01 2020-05-01 Orders Doctor ELENA 1.2.840.114 [id number] Univers 00:00:00 00:00:00 Only Unassigned, SOFYA 350.1.13.10 ity of [place] [facility] 4.2.7.2.686 Rah as [phone] [address] 2020-04-30 2020-04-30 [facility] 1.2.840.114 [id number] Univers 00:00:00 00:00:00 Outreach [facility] 350.1.13.10 ity of [place] 4.2.7.2.686 Rah as Professio [phone] [address] 2020-04-26 2020-04-26 Telemedici [facility] 1.2.840.114 [id number] Univers 07:54:10 17:08:01 ne Visit Wondiful [facility] 350.1.13.10 ity of [place] 4.2.7.2.686 Rah as Professio [phone] [address] 2020-04-26 2020-04-26 [facility] [id number] Univers 16:35:00 16:35:00 WONDIFUL ity o f [facility] 2020-04-24 2020-04-24 Telemedici [facility] 1.2.840.114 [id number] Univers 16:00:00 17:34:04 ne Visit Wondiful [facility] Health 350.1.13.10 ity of [place] 4.2.7.2.686 Rah as Professio [phone] [address] Office Building [facility] 2020-04-24 2020-04-24 Outpatient [facility] [id number] Univers 16:00:00 16:00:00 WONDIFUL ity o f [facility] 2020-02-05 2020-02-05 [facility] 1.2.840.114 [id number] Univers 00:00:00 00:00:00 Wondiful A Health 350.1.13.10 ity of [place] 4.2.7.2.686 Rah as Professio [phone] [address] Office [facility] 2020-01-24 2020-01-24 [facility] 1.2.428.639 [id number] Univers 00:00:00 00:00:00 Omayemi Health 350.1.13.10 it y of [place] 4.2.7.2.686 Rah as Professio [phone] [address] Office Building [facility] 2020-01-11 2020-01-11 Orders Doctor ELENA 1.2.840.114 [id number] Univers 00:00:00 00:00:00 Only Unassigned, SOFYA 350.1.13.10 ity of [place] [facility] 4.2.7.2.686 Rah as [phone] [address] 2019-12-30 2019-12-30 Urgent Provider, [facility] 1.2.840.114 [id number] Univers 10:22:10 10:42:10 Care Shonda Ling [facility] 350.1.13.10 ity of [place] 4.2.7.2.686 Rah as Professio [phone] [address] Office Building One 2019-12-30 2019-12-30 Outpatient R [facility] [id number] Univers 10:40:00 10:40:00 ity of [facility] 2019-11-23 2019-11-23 Telephone [facility] 1.2.840.114 [id number] Univers 00:00:00 00:00:00 Wondiful A Health 350.1.13.10 ity of [place] 4.2.7.2.686 Rah as Professio [phone] [address] Office [facility] 2019-09-15 2019-09-15 Office [facility] 1.2.840.114 [id number] Univers 15:23:40 16:09:48 Visit Cassandra [facility] 350.1.13.10 it y of [place] 4.2.7.2.686 Rah as Professio [phone] [address] 2019-09-15 2019-09-15 Out[address] [facility] [id number] Univers 15:20:00 15:20:00 CASSANDRA ity of [facility] 2019-04-07 2019-04-07 [facility] 1.2.840.114 [id number] Univers 00:00:00 00:00:00 Wondiful A Health 350.1.13.10 ity of [place] 4.2.7.2.686 Rah as Professio [phone] [address] Office [facility] One 2019-03-29 2019-03-29 Orders Doctor ELENA 1.2.840.114 [id number] Univers 00:00:00 00:00:00 Only Unassigned, SOFYA 350.1.13.10 ity of [place] [facility] 4.2.7.2.686 Rah as [phone] [address] 2019-03-24 2019-03-24 Telephone [facility] 1.2.840.114 [id number] Univers 00:00:00 00:00:00 Wondiful A Health 350.1.13.10 ity of [place] 4.2.7.2.686 Rah as Professio [phone] [address] Office Building One 2019-03-18 2019-03-18 Telephone [facility] 1.2.840.114 [id number] Univers 00:00:00 00:00:00 Wondiful A [facility] 350.1.13.10 ity of [place] 4.2.7.2.686 Rah as Professio [phone] [address] Office Building One 2019-03-16 2019-03-16 Telephone Amadou [facility] 1.2.840.114 [id number] Univers 00:00:00 00:00:00 Wondiful A Health 350.1.13.10 ity of [place] 4.2.7.2.686 Rah as Professio [phone] [address] Office Building One 2019-03-16 2019-03-16 Telephone Amadou [facility] 1.2.840.114 [id number] Univers 00:00:00 00:00:00 Wondiful A Health 350.1.13.10 ity of [place] 4.2.7.2.686 Rah as Professio [phone] [address] Office [facility] One 2019-03-15 2019-03-15 Office Amadou [facility] 1.2.840.114 [id number] [facility] 10:18:15 11:22:47 Visit Wondiful A Health 350.1.13.10 ity of [place] 4.2.7.2.686 Rah as Professio [phone] [address] Office [facility] One 2019-03-15 2019-03-15 Orders Doctor ELENA 1.2.840.114 [id number] Univers 00:00:00 00:00:00 Only Unassigned, SOFYA 350.1.13.10 ity of [place] [facility] 4.2.7.2.686 Rah as [phone] [address] 2019-03-11 2019-03-11 Telephone [facility] 1.2.840.114 [id number] [facility] 00:00:00 00:00:00 Wondiful A Health 350.1.13.10 ity of [place] 4.2.7.2.686 Rah as Professio [phone] [address] Office Building One 2019-03-07 2019-03-07 Telephone Amadou [facility] 1.2.840.114 [id number] Univers 00:00:00 00:00:00 Wondiful A Health 350.1.13.10 ity of [place] 4.2.7.2.686 Rah as Professio [phone] [address] Office Building One 2019-03-04 2019-03-04 Panel Monitor Lab, Adc Fam Pob I [facility] 1.2. 840.114 [id number] Univers 07:58:38 08:20:14 Visit Leroy [facility] 350.1.13.1 0 ity of [place] 4.2.7.2.686 Rah as Professio [phone] [address] Office Building One 2019-03-03 2019-03-03 Office Amadou [facility] 1.2.840.114 [id number] Univers 13:31:12 14:15:55 Visit Leroy [facility] 350.1.13.10 ity of [place] 4.2.7.2.686 Rah as Professio [phone] [address] Office Building One 2019-03-03 2019-03-03 Orders Doctor ELENA 1.2.840.114 [id number] Univers 00:00:00 00:00:00 Only Unassigned, SOFYA 350.1.13.10 ity of [place] [facility] 4.2.7.2.[phone] [facility] [address] 2019-02-17 2019-02-17 [facility] 1.2.840.114 [id number] Univers 07:13:00 09:18:00 Encounter Frederick Kristi 350.1.13.10 ity of [place]2.[place].2.[place] [phone] [facility] [address] 2019-02-17 2019-02-17 Orders Doctor ELENA 1.2.840.114 [id number] Univers 00:00:00 00:00:00 Only Unassigned, SOFYA 350.1.13.10 ity of [place] [facility] 4.2.7.2.[phone] [facility] [address] Results This patient has no known results.
[2022-12-03 08:20] LABS: Absolute Lymphocytes (CBC) 1.2 K/uL (0.7-4.9); Hematocrit 32.6 % (36.0-45.0); Lymphocytes % 17.3 % (15.3-44.8); MPV 7.1 fL (7.6-11.3); RBC Red Blood Cell Count 4.12 M/uL (3.86-4.86)
--- NOTE | 2022-12-03 08:57 | RAD REPORT ---
EXAM DESCRIPTION: RAD - Chest Single View - 12/03/2022 8:52 am CLINICAL HISTORY: DYSPNEA Chest pain. COMPARISON: Chest Single View dated 11/12/2022; Chest Single View dated 11/10/2022; Chest Single View dated 11/07/2022; Chest Single View dated 11/06/2022 FINDINGS: Portable technique limits examination quality. Moderate pulmonary edema. The heart is moderately enlarged. Trace pleural effusion. IMPRESSION: Moderate CHF.
--- NOTE | 2022-12-03 09:54 | RAD REPORT ---
EXAM DESCRIPTION: CT - Head Brain Wo Cont - 12/03/2022 9:47 am CLINICAL HISTORY: ams Headache, drowsiness COMPARISON: HEAD BRAIN W O CONTRAST dated 01/26/2014 TECHNIQUE: All CT scans are performed using dose optimization technique as appropriate and may inclu de automated exposure control or mA/KV adjustment according to patient size. FINDINGS: No intracranial hemorrhage, hydrocephalus or extra-axial fluid collection.Mild generalized brain atrophy is present with mild periventricular and deep white matter chronic microvascular ische andrea changes.No areas of brain edema or evidence of midline shift. Mild vertebral atherosclerosis. Mild mucosal thickening affects both maxillary antra. The calvarium is intact. IMPRESSION: No acute intracranial abnormality.
[2022-12-03 10:01] LABS: Albumin 3.6 g/dL (3.4-5.0); Potassium 3.9 mEq/L (3.5-5.1)
[2022-12-03 10:03] LABS: Troponin High Sensitivity 143.2 pg/mL (<58.9)
--- NOTE | 2022-12-03 10:34 | ER ---
Nurse's Notes [facility] Name: Celina Lyons Age: 72 yrs Sex: Female : 1950 Arrival Date: 12/03/2022 Time: 07:48 Bed 6 Private MD: Diagnosis: Acute pulmonary edema Presentation: 12/03 08:13 Chief complaint: Patient states: Cough, bronchitis for 2 weeks. SOB, weak, lethargic ll1 began 4 AM. saw her fall to her knees after using restroom. No head injury or blood thinners. EMS states: A\T\A [place] en route. IV Attempted, no success. Solu-Medrol 125 MG IM given. Coronavirus screen: Vaccine status: Patient reports receiving the 2nd dose of the covid vaccine. Client denies travel out of the [place] in the last 14 days. congestion, cough unrelated to allergies, difficulty breathing, fatigue, shortness of breath. Ebola Screen: Patient denies travel to an Ebola-affected area in the 21 days before illness onset. Initial Sepsis Screen: Does the patient meet any 2 criteria? RR > 20 per min. No. Patient's initial sepsis screen is negative. Does the patient have a suspected source of infection? Yes: Productive cough/pneumonia. Risk Assessment: Do you want to hurt yourself or someone else? Patient reports no desire to harm self or others. Onset of symptoms was November 18, 2022. 08:13 Method Of Arrival: EMS ll1 08:13 Acuity: JOSE 3 ll1 Triage Assessment: 08:16 General: Appears uncomfortable, ill, Behavior is cooperative, appropriate for age, ll1 listless. Pain: Denies pain. Neuro: Reports weakness. Respiratory: Reports shortness of breath cough that is labored breathing pain with cough. Respiratory: Airway is patent Trachea midline Respiratory effort is even, labored, Respiratory pattern is regular, Breath sounds with crackles bilaterally. Onset: The symptoms/episode began/occurred this morning, the patient has moderate shortness of breath. Historical: - Allergies: 08:12 Codeine; ll1 08:12 Pineapple; ll1 - PMHx: 08:12 Anemia; Diabetes - NIDDM; Endometriosis; Hypertensive disorder; Thyroid problem; toe ll1 amputations; Cushings disease; pulmonary edema; - Immunization history:: Adult Immunizations up to date. - Social history:: Smoking status: Patient denies any tobacco usage or history of. - Family history:: not pertinent. Screenin:13 [facility] ED Fall Risk Assessment (Adult) History of falling in the last 3 months, kc6 including since admission Yes- single mechanical fall (1 pt) Confusion or Disorientation Yes (5 pts) Intoxicated or Sedated No (0 pts) Impaired Gait Yes (1 pt) Mobility Assist Device Used Yes (1 pt) Altered Elimination No (0 pt) Score/Fall Risk Level 3 or more points = High Risk Oriented to surroundings, Maintained a safe environment, Educated pt \T\ family on fall prevention, incl call for assistance when getting out of bed, Assessed \T\ reinforced patient's understanding of fall precautions, Hourly rounding (assess needs \T\ fall precautionary measures) done. Abuse screen: Denies threats or abuse. Denies injuries from another. Nutritional screening: No deficits noted. Tuberculosis screening: No symptoms or risk factors identified. Assessment: 09:13 Reassessment: Patient appears in no apparent distress at this time. No changes from kc6 previously documented assessment. Patient and/or family updated on plan of care and expected duration. Pain level reassessed. 09:36 Reassessment: Ike Lyons . [facility] 10:30 Reassessment: No changes from previously documented assessment. rolled onto L side, ll1 patient uncomfortable. 10:43 Reassessment: No changes from previously documented assessment. Patient and/or family ll1 updated on plan of care and expected duration. Pain level reassessed. 10:55 Reassessment: No changes from previously documented assessment. 163 ml bladder scan. ll1 requested Mid line. Dr. Moreno informed. 11:21 Reassessment: No changes from previously documented assessment. Patient and/or family ll1 updated on plan of care and expected duration. Pain level reassessed. repositioned up in bed for comfort. 11:35 Reassessment: No changes from previously documented assessment. Patient and/or family ll1 updated on plan of care and expected duration. Pain level reassessed. 11:46 Cardiovascular: Rhythm is sinus tachycardia. ll1 Vital Signs: 07:56 BP 138 / 89; Pulse 103; Resp 24 S; Temp 97.9(O); Pulse Ox 95% on R/A; Weight 84.5 kg kc6 (M); Height 5 ft. 5 in. (R); Pain 0/10; 09:17 BP 127 / 66; Pulse 99; Resp 18 S; Pulse Ox 98% on 2 lpm NC; kc6 10:00 BP 133 / 86; Pulse 107; Resp 22; Pulse Ox 93% on 3 lpm NC; ll1 11:00 BP 157 / 100; Pulse 118; Resp 30; Pulse Ox 86% on 4 lpm NC; ll1 11:24 BP 121 / 65; Pulse 111; Resp 24; Pulse Ox 99% on Nebulizer Mask; ll1 11:34 Pulse 110; Resp 22; Pulse Ox 97% on 4 lpm NC; ll1 07:56 Body Mass Index 31.00 (84.50 kg, 165.1 cm) kc6 07:56 Pain Scale: Adult kc6 11:00 Dr. Moreno informed. Patient very sleepy. Doesn't want to cough/deep breathe. ll1 ED Course: 07:55 Patient arrived in ED. kc6 07:55 Chun Moreno MD is Attending Physician. rt 07:55 Arm band placed on Patient placed in an exam room, on a stretcher. ll1 08:05 Inserted saline lock: 22 gauge in right hand, using aseptic technique. Blood collected. ll1 08:11 Emilee Ovalles, RN is Primary Nurse. ll1 08:11 Missed attempt(s): 22 gauge in right forearm. Bleeding controlled, band aid applied, ll1 catheter tip intact. 08:13 Patient has correct armband on for positive identification. Bed in low position. Call kc6 light in reach. Side rails up X2. Adult w/ patient. 08:16 Triage completed. ll1 08:54 Chest Single View XRAY In Process Unspecified. EDMS 09:49 CT Head Brain wo Cont In Process Unspecified. EDMS 10:33 Aditya Caraballo MD is Hospitalizing Provider. rt 11:19 Lactate w/ 2H reflex if indic. Sent. ll1 11:46 No provider procedures requiring assistance completed. Patient admitted, IV remains in ll1 place. Administered Medications: 11:19 Drug: Furosemide IVP 40 mg Route: IVP; Site: right hand; ll1 11:48 Follow up: Response: No adverse reaction ll1 11:19 Drug: DuoNeb Nebulize (3:1) (2.5 mg - 0.5 mg) 3 ml Route: Nebulizer; 1 11:48 Follow up: Response: No adverse reaction ll1 11:30 Drug: Rocephin - Rocephin (cefTRIAXone) IVPB 2 grams Route: IVPB; Infused Over: 30 ll1 mins; Site: right hand; 12:01 Follow up: Response: No adverse reaction; IV Status: Infusion continued upon admission; 1 IV Intake: 70ml Medication: 11:47 VIS not applicable for this client. ll1 Intake: 12:01 IV: 70ml; Total: 70ml. 1 Outcome: 10:33 Decision to Hospitalize by Provider. rt 11:47 Admitted to Tele accompanied by tech, via stretcher, room 224, with chart, Report ll1 called to LORAINE Mazariegos on 08 30:47 Condition: stable 11:47 Instructed on the need for admit. 12:00 Patient left the ED. 1 Signatures: Dispatcher [employer] EDEmilee Casper RN RN ll1 Alissa Choudhary RN RN kc6 Chun Moreno MD MD rt Corrections: (The following items were deleted from the chart) 11:21 11:00 BP 157 / 100; Pulse 118bpm; Resp 30bpm; Pulse Ox 86% 4 lpm Nasal Cannula; 1 1 16:45 10:43 Reassessment: No changes from previously documented assessment. Patient and/or ll1 family updated on plan of care and expected duration. Pain level reassessed. Patient is alert, oriented x 3, equal unlabored respirations, skin warm/dry/pink. 1 16:46 10:30 Reassessment: No changes from previously documented assessment. rolled onto L ll1 side ll1 16:57 11:21 Reassessment: No changes from previously documented assessment. Patient and/or ll1 family updated on plan of care and expected duration. Pain level reassessed. 1
--- NOTE | 2022-12-03 10:34 | EDPHYS ---
Physician Documentation [facility] Name: Celina Lyons Age: 72 yrs Sex: Female : 1950 Arrival Date: 12/03/2022 Time: 07:48 Bed 6 Private MD: ED Physician Chun Moreno HPI: 12/03 08:16 This 72 yrs old Female presents to ER via EMS with complaints of Shortness Of Breath, rt Breathing Difficulty. 08:16 Patient presents to the ED with report of bronchitis for about 2 weeks. The patient rt developed worsening difficulty breathing at about 2 AM, progressively worsening. Room air sats95%. Patient with symptomatic improvement with nebulizer treatment prior to arrival. Was given Solu-Medrol by EMS. Denies chest pain, other acute complaints. Symptoms are moderate in severity, no other aggravating or alleviating factors.. Historical: - Allergies: 08:12 Codeine; ll1 08:12 Pineapple; ll1 - PMHx: 08:12 Anemia; Diabetes - NIDDM; Endometriosis; Hypertensive disorder; Thyroid problem; toe ll1 amputations; Cushings disease; pulmonary edema; - Immunization history:: Adult Immunizations up to date. - Social history:: Smoking status: Patient denies any tobacco usage or history of. - Family history:: not pertinent. ROS: 08:16 Constitutional: Negative for fever, chills, and weight loss, Cardiovascular: Negative rt for chest pain, palpitations, and edema, Abdomen/GI: Negative for abdominal pain, nausea, vomiting, diarrhea, and constipation, MS/Extremity: Negative for injury and deformity, Skin: Negative for injury, rash, and discoloration, Neuro: Negative for headache, weakness, numbness, tingling, and seizure. 08:16 Respiratory: Positive for cough, shortness of breath. Exam: 08:16 Constitutional: This is a well developed, well nourished patient who is awake, alert, rt and in no acute distress. Head/Face: Normocephalic, atraumatic. Eyes: Pupils equal round and reactive to light, extra-ocular motions intact. Lids and lashes normal. Conjunctiva and sclera are non-icteric and not injected. Cornea within normal limits. Periorbital areas with no swelling, redness, or edema. Chest/axilla: Normal chest wall appearance and motion. Nontender with no deformity. No lesions are appreciated. Cardiovascular: Regular rate and rhythm with a normal S1 and S2. No gallops, murmurs, or rubs. Normal PMI, no JVD. No pulse deficits. Abdomen/GI: Soft, non-tender, with normal bowel sounds. No distension or tympany. No guarding or rebound. No evidence of tenderness throughout. MS/ Extremity: Pulses equal, no cyanosis. Neurovascular intact. Full, normal range of motion. Neuro: Awake and alert, GCS 15, oriented to person, place, time, and situation. Cranial nerves II-XII grossly intact. Motor strength 5/5 in all extremities. Sensory grossly intact. Cerebellar exam normal. Normal gait. Psych: Awake, alert, with orientation to person, place and time. Behavior, mood, and affect are within normal limits. 08:16 ECG was reviewed by the Attending Physician. 08:16 Respiratory: Wheezes heard on all lung cardozo, no respiratory distress. Vital Signs: 07:56 BP 138 / 89; Pulse 103; Resp 24 S; Temp 97.9(O); Pulse Ox 95% on R/A; Weight 84.5 kg kc6 (M); Height 5 ft. 5 in. (R); Pain 0/10; 09:17 BP 127 / 66; Pulse 99; Resp 18 S; Pulse Ox 98% on 2 lpm NC; kc6 10:00 BP 133 / 86; Pulse 107; Resp 22; Pulse Ox 93% on 3 lpm NC; ll1 11:00 BP 157 / 100; Pulse 118; Resp 30; Pulse Ox 86% on 4 lpm NC; ll1 11:24 BP 121 / 65; Pulse 111; Resp 24; Pulse Ox 99% on Nebulizer Mask; ll1 11:34 Pulse 110; Resp 22; Pulse Ox 97% on 4 lpm NC; ll1 07:56 Body Mass Index 31.00 (84.50 kg, 165.1 cm) [facility] 07:56 Pain Scale: Adult kc6 11:00 Dr. Moreno informed. Patient very sleepy. Doesn't want to cough/deep breathe. ll1 MDM: 07:55 Patient medically screened. rt 10:46 Differential diagnosis: Pneumonia, pneumothorax, PE, pulmonary edema, acute bronchitis. rt Data reviewed: vital signs, nurses notes. Consideration of Admission/Observation Patient was admitted/placed on observation. Management of patient was discussed with the following: Primary Care Provider: Agrees to admit. I considered the following discharge prescriptions or medication management in the emergency department Medications were administered in the Emergency Department. See MAR. Test considered but Not performed: CT: Low suspicion for PE, CT angiogram not indicated. Historians other than the Patient: Spouse/Significant Other: . External Records Reviewed: Inpatient record: Reviewed hyponatremia on previous admission as well as cardiology reports. Care significantly affected by the following chronic conditions: Diabetes. Counseling: I had a detailed discussion with the patient and/or guardian regarding: the historical points, exam findings, and any diagnostic results supporting the discharge/admit diagnosis, lab results, radiology results, the need for further work-up and treatment in the hospital. ED course: Believe the patient's presentation is most likely due to pulmonary edema as compared to an infectious etiology such as pneumonia, antibiotics ordered at the request of admitting physician. Do not believe that the patient is septic.. 12/03 07:56 Order name: CBC with Diff; Complete Time: 09:00 rt 12/03 07:56 Order name: CMP; Complete Time: 10:04 rt 12/03 07:56 Order name: BNP; Complete Time: 10:04 rt 12/03 07:56 Order name: Troponin High Sensitivity; Complete Time: 10:04 rt 12/03 10:30 Order name: SARS RAPID; Complete Time: 11:15 rt 12/03 10:32 Order name: Lactate w/ 2H reflex if indic. rt 12/03 10:32 Order name: Blood Culture Adult (2) rt 12/03 07:56 Order name: Chest Single View XRAY; Complete Time: 09:00 rt 12/03 09:31 Order name: CT Head Brain wo Cont; Complete Time: 09:55 rt 12/03 07:56 Order name: EKG; Complete Time: 07:57 rt 12/03 07:56 Order name: EKG - Nurse/Tech; Complete Time: 08:05 rt 12/03 08:27 Order name: Labs - recollect needed: recollect green top; Complete Time: 08:39 bd 12/03 08:53 Order name: Labs - recollect needed: recollect green top again; Complete Time: 09:31 bd 12/03 10:21 Order name: Bladder Scanner; Complete Time: 11:04 rt EC:16 Rate is 103 beats/min. Rhythm is regular, Sinus tachycardia with No ectopy. QRS [place] is rt Normal. MD interval is normal. QRS interval is normal. QT interval is normal. No Q waves. Clinical impression: NSR w/ Non-specific ST/T Changes. Administered Medications: 11:19 Drug: Furosemide IVP 40 mg Route: IVP; Site: right hand; ll1 11:48 Follow up: Response: No adverse reaction ll1 11:19 Drug: DuoNeb Nebulize (3:1) (2.5 mg - 0.5 mg) 3 ml Route: Nebulizer; ll1 11:48 Follow up: Response: No adverse reaction ll1 11:30 Drug: Rocephin - Rocephin (cefTRIAXone) IVPB 2 grams Route: IVPB; Infused Over: 30 ll1 mins; Site: right hand; 12:01 Follow up: Response: No adverse reaction; IV Status: Infusion continued upon admission; ll1 IV Intake: 70ml Disposition Summary: 12/03/22 10:33 Hospitalization Ordered Hospitalization Status: Inpatient Admission rt Provider: Aditya Caraballo rt Location: Telemetry/MedSurg (Inpatient) rt Condition: Fair rt Problem: an acute exacerbation rt Symptoms: have improved rt Bed/Room Type: Standard rt Room Assignment: 224(12/03/22 10:54) bd Diagnosis - Acute pulmonary edema rt Forms: - Medication Reconciliation Form rt - SBAR form rt Signatures: Dispatcher [employer] EDJulia Arevalo Lynsay, RN RN ll1 Chun Moreno MD MD rt Corrections: (The following items were deleted from the chart) 10:54 10:33 rt bd
[2022-12-03] MEDS ORDERED: FUROSEMIDE 40 MG/4 ML VIAL ONE (10:37)
[2022-12-03 11:01] LABS: SARS-CoV-2 Antigen Rapid Res Negative (Negative)
[2022-12-03] MEDS ORDERED: CEFTRIAXONE 2000 MG/VIAL ONE (11:06)
[2022-12-03] MEDS ORDERED: NA CHLORIDE 0.9% 100 ML ONE (11:06)
[2022-12-03] MEDS ORDERED: ALBUTEROL 2.5 MG/3 ML NEB SOL ONE (11:23)
[2022-12-03] MEDS ORDERED: IPRATROPIUM BROM 0.5MG/2.5ML ONE (11:23)
[2022-12-03 12:21] VITALS: TEMP 97.6
[2022-12-03 14:18] LABS: Blood Gas Oxyhemoglobin 92.9 % (94-97); Blood O2 Saturation 95.4 % (92-98.5)
[2022-12-03 14:19] LABS: Arterial Blood Carboxyhemoglob 1.3 % (0-1.5)
[2022-12-03 14:51] LABS: Magnesium 1.1 mg/dL (1.6-2.4); Phosphorus 2.8 mg/dL (2.5-4.9); Potassium 3.6 mEq/L (3.5-5.1)
[2022-12-03 15:33] LABS: Hematocrit 31.7 % (36.0-45.0)
[2022-12-03 15:34] LABS: Absolute Lymphocytes (CBC) 0.3 K/uL (0.7-4.9); Lymphocytes % 5.2 % (15.3-44.8); MCV 79.4 fL (80-100); MPV 7.1 fL (7.6-11.3)
[2022-12-03 15:56] LABS: Specific Gravity 1.008 (1.005-1.030); Urine Bacteria None Seen /HPF (<20); Urine Bilirubin NEGATIVE (Negative); Urine Blood 1+ (Negative); Urine Clarity Clear (Clear); Urine Color Colorless (Yellow); Urine Glucose NEGATIVE (Negative); Urine Mucus Slight /HPF (None Seen); Urine Protein NEGATIVE (Negative); Urine RBC <5 /HPF (None Seen); Urine Urobilinogen Normal (Normal)
[2022-12-03] MEDS ORDERED: FUROSEMIDE 40 MG/4 ML VIAL IV ONE (16:10)
[2022-12-03 16:16] VITALS: BMI 37.3
--- NOTE | 2022-12-03 16:34 | PN ---
I was called to see the patient as the nurses felt that her condition was deteriorating and in fact s he was less responsive than she had been. According to the nurses, also blood gases were obtained an d were suggestive of carbon dioxide retention. She did respond to deep pain stimuli. Possibility of being septic as well and it was felt that she should be transferred to the emergency room for more i ntensive care with possibility of intubation to be considered. Her electrolytes were relatively norm al; however, she was given some Lasix IV with good response. We will discuss the case with the hospi talist and transfer her to the ICU. We will also obtain an MRI, stroke protocol when I saw her, she did seem to have some drooping of her lip and it is possible that she had CVA as well and/or neuroma, possibility of septic emboli. HR/MODL Voice ID: [id number] Report ID: [id number]
--- NOTE | 2022-12-03 16:40 | HP ---
Date of Admission: 12/03/2022 Entrance Complaint: Shortness of breath. History Of Present Illness: The patient has a rather complicated medical history over the past few w eeks. Approximately 3 weeks ago, she came in with confusion, altered mental status, and found to hav e a sodium in the 120 range. This was replaced. She showed gradual improvement and was discharged t o be followed up as an outpatient basis; however, the patient did not comply with followup blood work until she was called to the office a couple of days ago and states she was coughing up some yellow s putum. She was therefore placed on an antibiotic and said she would go to get her followup blood wor k; however, the day of admission according to her when she was somewhat responsive and her th at she became increasingly short of breath, became very sleepy and lethargic and nonresponsive, there fore he brought her to the emergency room. Past History: The patient has a long history of diabetes under good control on Trulicity. Has been hypertensive, also well controlled as well as thyroid issue which has been controlled on medicine as well. Social History: Nonsmoker, nondrinker. Family History: Noncontributory. Physical Examination: General: The patient is an elderly female with stable vital signs. Head and Neck: Normocephalic. ENT: Negative. Chest: High-pitched rhonchi and rales bilaterally. Adequate air entry and movement. No accessory m uscle usage required. Cardiovascular: PMI midclavicular line. Heart: Sounds normal. Abdomen: No organomegaly. Bowel sounds present. Extremities: Slightly dehydrated. Good tone and movement bilaterally. Reflexes physiologic. Rectal/pelvic: Deferred. Impression: Acute bronchitis, pulmonary edema, electrolyte imbalance, NIDDM, good controlled, hypert ension, good controlled. Plan: The patient will be admitted, monitored. Chest x-ray will be taken and depending on the resul ts, CAT scan may be indicated as well. She had somewhat similar problems. On her last admission, it was difficult to ascertain whether it was pneumonitis or CHF for a little bit of both. Of note in t he ambulance in way to the hospital, she was given Solu-Medrol. HR/MODL Voice ID: [id number]
[2022-12-03] MEDS ORDERED: ONDANSETRON 4 MG/2 ML VIAL IV PRN (16:57)
[2022-12-03] MEDS ORDERED: NA CHLORIDE 0.9% 1,000 ML IV SCH (17:00)
--- NOTE | 2022-12-03 17:31 | RAD REPORT ---
EXAM DESCRIPTION: CT - Ct Stroke Brain Wo Cont - 12/03/2022 5:23 pm CLINICAL HISTORY: R/O Bleed COMPARISON: Head Brain Wo Cont dated 12/03/2022; HEAD BRAIN W O CONTRAST dated 01/26/2014 TECHNIQUE: Noncontrast head CT images ad were obtained without IV contrast. Multiplanar reformats we re generated and reviewed. All CT scans are performed using dose optimization technique as appropriate and may include automated exposure control or mA/KV adjustment according to patient size. FINDINGS: No intracranial hemorrhage, mass, or edema. Midline structures are unremarkable. Normal ventricular caliber for age. Kent-white matter differentiation is preserved, without evidence of acute infarct. No abnormal extra- axial fluid collections. Mild periventricular hypoattenuation, stable, nonspecific, may relate to chronic small vessel ischemi c changes. Mastoid air cells are well aerated. Moderate right maxillary sinus mucosal thickening with small air- fluid level. No acute bony findings. IMPRESSION: No evidence of an acute intracranial process. The findings were communicated to Hussein Borrego on 12/03/2022 at 17:09 hours.
--- NOTE | 2022-12-03 17:41 | RAD REPORT ---
EXAM DESCRIPTION: CT - Head angio - 12/03/2022 5:24 pm CLINICAL HISTORY: STROKE ALERT COMPARISON: Ct Stroke Brain Wo Cont dated 12/03/2022; Head Brain Wo Cont dated 12/03/2022; Neck Angio dated 12/03/2022; Chest Single View dated 12/03/2022; HEAD BRAIN W O CONTRAST dated 01/26/2014 TECHNIQUE: Axial CT angiography images of the head was performed with multiplanar and maximum intens ity projection reconstructions. Images performed following intravenous administration of 100mL Isovue 370. All CT scans are performed using dose optimization technique as appropriate and may include automated exposure control or mA/KV adjustment according to patient size. FINDINGS: Mild atherosclerotic calcifications. Reconstitution of the intracranial left ICA at the le jie of the communicating segment. The preceding segments are not opacified. No other evidence of larg e vessel occlusion. No evidence of aneurysm or dissection flap is detected. No flow-limiting stenosis or vascular malformation identified. Antegrade flow is seen in the vertebral arteries. The vertebral arteries are codominant. The visualized dural venous sinuses are grossly patent. IMPRESSION: Reconstitution of the intracranial left ICA at the level of the communicating segment. No other evidence of large vessel occlusion or flow-limiting stenosis. The findings were communicated to Hussein Borrego on 12/03/2022 at 17:36 hours.
--- NOTE | 2022-12-03 17:43 | RAD REPORT ---
EXAM DESCRIPTION: CT - Neck Angio - 12/03/2022 5:23 pm CLINICAL HISTORY: STROKE ALERT COMPARISON: Ct Stroke Brain Wo Cont dated 12/03/2022 TECHNIQUE: Axial CT angiography images of the head was performed with multiplanar and maximum intens ity projection reconstructions. Images performed following intravenous administration of 100mL Isovue 370. All CT scans are performed using dose optimization technique as appropriate and may include automated exposure control or mA/KV adjustment according to patient size. Quantification of carotid stenosis, if any, is performed according to NASCET criteria. FINDINGS: A left aortic arch is identified with normal three vessel configuration of the great vesse ls. No significant flow abnormality is seen of the common carotid bilaterally. Complete occlusion of the left internal carotid artery approximately 1.5 centimeter distal to its levy gin. No significant stenosis is identified involving the cervical segments of the right internal carson tid artery. Normal flow is seen within both vertebral arteries. IMPRESSION: Complete left internal carotid artery occlusion approximately 1.5 centimeter distal to i ts origin. The findings were communicated to Hussein Borrego on 12/03/2022 at 17:36 hours.
[2022-12-03 18:02] VITALS: BP 143/90; O2SAT 100
--- NOTE | 2022-12-03 18:47 | RAD REPORT ---
EXAM DESCRIPTION: MRI - Brain Wo Cont - 12/03/2022 5:43 pm CLINICAL HISTORY: ams COMPARISON: Noncontrast head CT and CT angiogram of the same date TECHNIQUE: Multiplanar multisequence MRI of the brain performed without IV contrast. FINDINGS: Motion artifact somewhat limits evaluation. Small foci of white matter diffusion restriction along the left centrum semiovale and left frontal daugherty bcortical/juxta cortical white matter. A single focus is seen along the right forceps minor. No evidence of acute intracranial hemorrhage or abnormal extra-axial fluid collections. Mild diffuse parenchymal volume loss. Ventricular caliber otherwise within normal for age. Midline st ructures are unremarkable. Other scattered subcortical and deep white matter T2/FLAIR hyperintensities, nonspecific, but suggest kenneth of chronic small vessel ischemic changes. No mass effect or midline shift. Major vascular flow voids are preserved. Mastoid air cells and paranasal sinuses are clear. IMPRESSION: Scattered white matter as well as left juxta cortical frontal foci of diffusion restrict ion on the left and a single focus of diffusion restriction in the right forceps minor, suggestive of acute to subacute infarcts. Distribution suggests embolic origin. The findings were communicated to Hussein Borrego on 12/03/2022 at 18:43 hours.
[2022-12-03 19:05] LABS: Absolute Lymphocytes (CBC) 0.4 K/uL (0.7-4.9); Hematocrit 33.7 % (36.0-45.0); Lymphocytes % 6.8 % (15.3-44.8); MPV 7.4 fL (7.6-11.3); RBC Red Blood Cell Count 4.26 M/uL (3.86-4.86)
[2022-12-03 19:08] LABS: Protime INR 1.24
[2022-12-03 19:15] LABS: Potassium 3.5 mEq/L (3.5-5.1)
--- NOTE | 2022-12-04 05:38 | EKG ---
Test Date: 2022-12-03 Test Time: 08:00:53 Handle Bar Assembler: IRAJ MEASUREMENT RESULTS: Intervals: Rate: 103 ME: 166 QRSD: 94 QT: 338 QTc: 442 [place]: P: 59 ME: 166 QRS: 46 T: 108 INTERPRETIVE STATEMENTS: Sinus tachycardia Low voltage QRS Cannot rule out Anterior infarct, age undetermined ST & T wave abnormality, consider lateral ischemia Abnormal ECG Compared to ECG 11/09/2022 01:13:53 Myocardial infarct finding now present Sinus rhythm no longer present ST (T wave) deviation still present Possible ischemia still present Electronically Signed On 12-04-22 05:37:37 CDT by Armani Adrian
[2022-12-04 05:39] LABS: RPR (Rapid Plasma Reagin) NON-REACT (NON-REACT)
[2022-12-04] MEDS ORDERED: ENOXAPARIN 40 MG/0.4 ML SQ SCH (09:00)
[2022-12-04] MEDS ORDERED: FUROSEMIDE 20 MG/ 2ML VIAL IV SCH (09:00)
[2022-12-08 17:09] LABS: Albumin, (SPE) 3.6 g/dL (3.8-4.8); Alpha-1-Globulins 0.4 g/dL (0.2-0.3); Alpha-2-Globulins 1.3 g/dL (0.5-0.9); Gamma Globulins 1.3 g/dL (0.8-1.7); INTERPRETATION REPORT
[2022-12-09 14:31] LABS: Protein C Antigen 78 % normal (70-140)
[2022-12-10 02:10] LABS: Phosphatidylser & Prothrom IgG <9 U (<=30); Phosphatidylser & Prothrom IgM <9 U (<=30)
== END 2022-12-03 19:40 | disposition short-term general hospital (02) | DRG 203 ==
LOC: ER 07:48 → ERHOLD 10:40 → 2ND 11:28 → 3RD-ICU 15:45
PROVIDERS: ADMIT Family Medicine; ATTEND Family Medicine
DX: J20.9 Acute bronchitis, unspecified (principal); I11.0 Hypertensive heart disease with heart failure; I50.9 Heart failure, unspecified; E11.9 Type 2 diabetes mellitus without complications; E86.0 Dehydration; E87.8 Other disorders of electrolyte and fluid balance, not elsewhere classified; Z88.5 Allergy status to narcotic agent; Z91.018 Allergy to other foods; Z89.429 Acquired absence of other toe(s), unspecified side; Z86.711 Personal history of pulmonary embolism
CPT/HCPCS: 36415; 70450; 70496; 70498; 70551; 71045; 80048; 80053; 81001; 81240; 81241; 82306; 82607; 82805; 82947; 83090; 83605; 83735; 83880; 84100; 84132; 84165; 84484; 85025; 85300; 85302; 85305; 85306; 85610; 85730; 86021; 86592; 87040; 87811; 93005; 94640; 94760; 96365; 96375; 99285; J0696; J1940; J7030; J7613; J7644; Q9967